=== PATIENT | female | born 1990 | race Caucasian/White ===

== ENCOUNTER 2016-07-21 12:22 | Emergency (ER) | payer SELFPAY ==
[2016-07-21 13:02] VITALS: BP 137/80
--- NOTE | 2016-07-21 13:07 | UC ---
Minor Trauma HPI - HPI Summary HPI Summary: Low left back pain after fall on ice today. no new numbness or weakness but there is significant pain with any movement. no saddle anesthesia or incontinence. - History of Current Complaint Chief Complaint: UCBACK PAIN Stated Complaint: WC-FALL/BACK PAIN Time Seen by Provider: 07/21/16 12:53 Hx Obtained From: Patient Hx Last Menstrual Period: 07/15/16 ?: No Onset/Duration: Sudden Onset Onset Of Pain: Post Accident Severity Initially: Moderate Severity Currently: Moderate Pain Scale Used: 0-10 Numeric - 5/10 without movement. Mechanism Of Injury: Fall From Height Of: - standing. Aggravating Factor(s): Movement Associated Signs And Symptoms: Negative: Loss Of Consciousness, Ecchymosis, Swelling - Risk Factors Penetrating Injury Risk Factors: Negative - Allergies/Home Medications Allergies/Adverse Reactions: Allergies Allergy/AdvReac Type Severity Reaction Status Date / Time Tobramycin AdvReac Intermediate Pain Verified 07/21/16 12:50 PMH/Surg Hx/FS Hx/Imm Hx Endocrine History Of: Denies: Diabetes, Thyroid Disease Cardiovascular History Of: Denies: Cardiac Disorders, Hypertension, Pacemaker/ICD Respiratory History Of: Reports: Asthma Denies: COPD GI/ History Of: Reports: Ulcer - borderline ulcer in past Denies: Renal Disease - Surgical History Surgery Procedure, Year, and Place: T&A, Adnoidectomy - Family History Known Family History: Negative: Hypertension, Diabetes Family History: no recent family illness, no cardio-vascular disease history - Social History Alcohol Use: None Alcohol Amount: none in 3 months Substance Use Type: None Substance Use Comment - Amount & Last Used: quit 6 months ago marijuana Smoking Status (MU): Light Every Day Tobacco Smoker Type: Cigarettes Amount Used/How Often: 5 CIGS PER DAY Length of Time of Smoking/Using Tobacco: On and Off for 8 Years Have You Smoked in the Last Year: Yes Household Exposure Type: Cigarettes - Immunization History Most Recent Influenza Vaccination: Not the 2016/2016 Season Most Recent Tetanus Shot: Summer 2015 Most Recent Pneumonia Vaccination: none Review of Systems All Other Systems Reviewed And Are Negative: Yes Physical Exam Triage Information Reviewed: Yes Appearance: Well-Nourished, Pain Distress - grimace with palpation otherwise well and no obvious pain. Vital Signs: Initial Vital Signs Temp 99.6 F 07/21/16 12:51 Pulse 109 07/21/16 12:51 Resp 20 07/21/16 12:51 BP 137/80 07/21/16 12:51 Pulse Ox 100 07/21/16 12:51 Vital Signs Reviewed: Yes Eye Exam: Normal Eyes: Positive: Conjunctiva Clear. Negative: Conjunctiva Inflamed ENT: Positive: Normal ENT inspection, Pharynx normal. Negative: Nasal drainage , TMs normal, TM bulging, TM dull, TM red, Tonsillar swelling, Tonsillar exudate , Trismus, Muffled/hoarse voice Neck exam: Normal Neck: Positive: Supple, Nontender. Negative: No Lymphadenopathy, Nuchal Rigidity, Tenderness @, Enlarged Nodes @ Respiratory Exam: Normal Respiratory: Positive: Normal breath sounds, No respiratory distress, No accessory muscle use. Negative: Respiratory distress Cardiovascular Exam: Normal Cardiovascular: Positive: RRR, No Murmur, Pulses Normal Abdomen Description: Positive: Nontender, No Organomegaly Musculoskeletal Exam: Normal Musculoskeletal: Positive: Strength Intact, No Edema, ROM Limited @ - there is diffuse tenderness of the right mid to lower flank areas. There is diffuse midline tenderness as well. no bruising or deformity or anders offs. REflexes maximino 2+ patella and achilles. Maximino straight leg raise causes pain. Neurological Exam: Normal Neurological: Positive: Alert, Muscle Tone Normal. Negative: Fatigued Psychological Exam: Normal Skin Exam: Normal Skin: Negative: rashes Minor Trauma Course/Dx - Course Course Of Treatment: No neurlologic symptoms or deficits. no fx. symptomatic treatment. return for worsening. to ed immediately for any new neurologic symptoms. - Differential Dx/Diagnosis Differential Diagnosis/HQI/PQRI: Abrasion(s), Contusion(s), Fracture, Hematoma(s ), Laceration(s), Sprain, Strain Provider Diagnoses: traumatic low back pain. Discharge - Discharge Plan Condition: Stable Disposition: HOME Prescriptions: Cyclobenzaprine TAB* [Flexeril 10 MG TAB*] 10 mg PO BID PRN #10 tab PRN Reason: Pain Patient Education Materials: Acute Low Back Pain (ED) Forms: *Work Release
--- NOTE | 2016-07-21 13:33 | RAD ---
HISTORY: Low back pain after fall COMPARISONS: None VIEWS: 3 , Frontal, lateral, and coned-down lateral sacral views of the lumbar spine FINDINGS: ALIGNMENT: The alignment is normal. VERTEBRAL BODIES: The vertebral body heights are normal. The interpedicular distances are normal. JOINTS: The facet joints are normal. INTERVERTEBRAL DISCS: There is mild diffuse loss of intervertebral disc height. SOFT TISSUE: Unremarkable. OTHER: The pelvis is unremarkable. The lung bases are clear. IMPRESSION: MILD DEGENERATIVE CHANGES. NO ACUTE OSSEOUS INJURY. IF SYMPTOMS PERSIST, RECOMMEND REPEAT IMAGING
== END 2016-07-21 13:53 | disposition home or self-care (01) ==
LOC: UCCORT 12:22
DX: M54.5 Low back pain (principal); Z32.02 Encounter for pregnancy test, result negative; Z88.1 Allergy status to other antibiotic agents; F17.210 Nicotine dependence, cigarettes, uncomplicated
CPT/HCPCS: 72100; 81003; 84702; 87086; 99212; G0463

== ENCOUNTER 2016-08-03 13:48 | Emergency (ER) | payer SELFPAY ==
[2016-08-03 15:24] VITALS: BP 122/77
--- NOTE | 2016-08-03 16:24 | UC ---
Bite Injury/Animal HPI - HPI Summary HPI Summary: complaint of jd bite on left hand that started yesterday at 10AM since then hand has become swollen red painful pain is radiating up her arm cat has been vaccinated - works at [employer] not taking any medication for pain denies fever and chills - History of Current Complaint Chief Complaint: UCBiteInjury Stated Complaint: CAT BITE Time Seen by Provider: 08/03/16 16:18 Hx Obtained From: Patient Hx Last Menstrual Period: 07/15/16 - Allergies/Home Medications Allergies/Adverse Reactions: Allergies Allergy/AdvReac Type Severity Reaction Status Date / Time Tobramycin AdvReac Intermediate Pain Verified 08/03/16 15:24 PMH/Surg Hx/FS Hx/Imm Hx Previously Healthy: Yes Endocrine History Of: Denies: Diabetes, Thyroid Disease Cardiovascular History Of: Denies: Cardiac Disorders, Hypertension, Pacemaker/ICD Respiratory History Of: Reports: Asthma Denies: COPD GI/ History Of: Reports: Ulcer - borderline ulcer in past Denies: Renal Disease - Surgical History Surgical History: Yes Surgery Procedure, Year, and Place: T&A, Adnoidectomy - Family History Known Family History: Negative: Hypertension, Diabetes Family History: no recent family illness, no cardio-vascular disease history - Social History Occupation: Employed Full-time Lives: With Family Alcohol Use: None Alcohol Amount: none in 3 months Substance Use Type: None Substance Use Comment - Amount & Last Used: quit 6 months ago marijuana Smoking Status (MU): Light Every Day Tobacco Smoker Type: Cigarettes Amount Used/How Often: 5 CIGS PER DAY Length of Time of Smoking/Using Tobacco: On and Off for 8 Years Have You Smoked in the Last Year: Yes Household Exposure Type: Cigarettes Cessation Counseling: Patient Advised to Stop - Immunization History Most Recent Influenza Vaccination: Not the 2016/2016 Season Most Recent Tetanus Shot: Summer 2015 Most Recent Pneumonia Vaccination: none Review of Systems Constitutional: Negative Skin: Other - cat bite Eyes: Negative ENT: Negative Respiratory: Negative Cardiovascular: Negative Gastrointestinal: Negative Genitourinary: Negative Motor: Negative Neurovascular: Negative Musculoskeletal: Negative Neurological: Negative Psychological: Negative All Other Systems Reviewed And Are Negative: Yes Physical Exam Triage Information Reviewed: Yes Appearance: No Pain Distress, Well-Nourished Vital Signs: Initial Vital Signs Temp 98.7 F 08/03/16 15:19 Pulse 102 08/03/16 15:19 Resp 18 08/03/16 15:19 BP 122/77 08/03/16 15:19 Pulse Ox 100 08/03/16 15:19 Vital Signs Reviewed: Yes Eyes: Positive: Conjunctiva Clear ENT: Positive: Pharynx normal, TMs normal Neck: Positive: No Lymphadenopathy Respiratory: Positive: Lungs clear, Normal breath sounds, No respiratory distress Cardiovascular: Positive: RRR, No Murmur, Pulses Normal Abdomen Description: Positive: Nontender, Soft Bowel Sounds: Positive: Present Musculoskeletal Exam: Normal Neurological Exam: Normal Psychological Exam: Normal Skin: Positive: Other - left hand - puncture wounds over 3rd and4th MCP joints, diffuse erythema throughout hand up to wrist,3x4cm area of darher erythema over pasterior side of hand, able to move fingers but painful Bite Injury Course/Dx - Course Course Of Treatment: exam completed. pt afebrile, will treat with augmentin with followup with orthopedics due to puncture wounds over joints in hand. discussed when to seek emergent care with pt who states understanding - Differential Dx/Diagnosis Differential Diagnosis/HQI/PQRI: Cellulitis, Puncture Provider Diagnoses: left hand cellulitis secondary to cat bite Discharge - Discharge Plan Condition: Stable Disposition: HOME Prescriptions: Amoxicillin/Clavulanate TAB* [Augmentin TAB 875*] 875 mg PO BID #20 tab Ibuprofen TAB* [Motrin TAB* 800 MG] 800 mg PO Q8H #30 tab Patient Education Materials: Animal Bite (ED) Forms: *Work Release Referrals: Bindu Jesus NP [Primary Care Provider] - Alexandra Reveles MD [Medical Doctor] - Additional Instructions: Your blood pressure is pre-hypertensive reading. Please contact your primary care provider within 1 day -4 weeks for further evaluation please call orthopedics for further evaluation and treatment. CELLULITIS What is Cellulitis? Cellulitis is a bacterial infection of the skin and, sometimes, of the tissues beneath the skin. The skin normally has many types of bacteria on it, but intact skin is an effective barrier that keeps bacteria from entering and growing within the body. When there is a break in the skin, bacteria can enter the body and grow there, causing infection. The infection usually affects outer layers of the skin first, and then spreads deeper into body tissues. Cellulitis can affect any area of the body covered by skin, but it is most common on the face or lower part of the legs. Symptoms Might Include: Skin redness that increases in size as the infection spreads Tight, glossy, "stretched" appearance of the skin Pain or tenderness of the area The affected area may be warm or hot to the touch A thin red line (along a vein) from the cellulitis toward the heart Fever Chills, shaking Muscle aches pains Joint stiffness because of swelling around a joint Treatment Recommendations: The healthcare provider may have prescribed an antibiotic medicine. The medicine should be taken until it is completely gone, even if you are feeling better. If you stop taking the medicine early, the infection may not be completely gone, and the medication may not work the next time. If the infection is on your arm or leg, keep it elevated. You may use warm, wet compresses to relieve the pain and help healing. Soak a clean cloth in warm water, wring it a little, and apply it to the affected site. Leave the soak in place for 15 minutes and repeat often throughout the day. Rest until the fever is gone and the pain and redness have lessened. You may take ibuprofen (Motrin, Advil), or acetaminophen (Tylenol) for pain. These will help ease some of the symptoms but will not cure the infection. Call Your Doctor or Return Here IF: Your fever does not go down with treatment, or it increases to more than 101 F. You are not starting to get better with the treatment within 24 to 36 hours. You have increasing pain, swelling, or chills. You feel drowsy and lethargic, or you have vomiting or diarrhea. You find the redness is spreading or there are red streaks coming from the infected area. The joint or bone under the infected skin becomes painful after the skin has started to heal. You have any new symptoms that worry you.
[2016-08-03] MEDS ORDERED: Amoxicillin/Clavulanate TAB* 875 MG PO ONE (16:29)
[2016-08-03] MEDS ORDERED: Ibuprofen TAB* 400 MG PO ONE (16:30)
== END 2016-08-03 17:00 | disposition home or self-care (01) ==
LOC: UCEAST 13:48
DX: S60.572A Other superficial bite of hand of left hand, initial encounter (principal); L03.114 Cellulitis of left upper limb; W55.01XA Bitten by cat, initial encounter; Y93.9 Activity, unspecified; Y99.9 Unspecified external cause status; R03.0 Elevated blood-pressure reading, without diagnosis of hypertension
CPT/HCPCS: 99212; A9270-GY; G0463

== ENCOUNTER 2016-08-06 12:41 | Emergency (ER) | payer SELFPAY ==
[2016-08-06] MEDS ORDERED: Ondansetron ODT TAB* 4 MG PO ONE (13:13)
--- NOTE | 2016-08-06 13:31 | ED ---
Stuart Carter Billy, scribed for Jorge Luis Zuleta MD on 08/06/16 at 1306 . Bite Injury/Animal - HPI Summary HPI Summary: Patient is a 26 year-old female coming to [facility] after being bitten by a cat on the left hand. She was evaluated at [facility] [place] and was prescribed Augmentin. She says the ROM has improved since then. However, the pain is not improving as she would like, and she also complains of N/V/D. - History of Current Complaint Chief Complaint: EDAnimalBite Stated Complaint: CAT BITE Time Seen by Provider: 08/06/16 13:01 Hx Obtained From: Patient Hx Last Menstrual Period: 07/15/16 Onset of Injury: Happened days ago Type of Bite: Animal Severity Initially: Moderate Severity Currently: Moderate Pain Intensity: 9 Pain Scale Used: 0-10 Numeric Aggravating Factor(s): Nothing Alleviating Factor(s): Nothing Associated Signs And Symptoms: Positive: Erythema, Swelling, Limited ROM. Negative: Fever - Allergies/Home Medications Allergies/Adverse Reactions: Allergies Allergy/AdvReac Type Severity Reaction Status Date / Time Tobramycin AdvReac Intermediate Pain Verified 08/03/16 15:24 PMH/Surg Hx/FS Hx/Imm Hx Endocrine/Hematology History: Denies: Hx Diabetes, Hx Thyroid Disease Cardiovascular History: Denies: Hx Hypertension, Hx Pacemaker/ICD Respiratory History: Reports: Hx Asthma Denies: Hx Chronic Obstructive Pulmonary Disease (COPD) GI History: Reports: Hx Ulcer - borderline ulcer in past History: Denies: Hx Renal Disease Sensory History: Denies: Hx Hearing Aid Psychiatric History: Denies: Hx Panic Disorder - Surgical History Surgery Procedure, Year, and Place: T&A, Adnoidectomy Infectious Disease History: Reports: Hx of Known/Suspected MRSA Denies: Hx Clostridium Difficile, Hx Hepatitis, Hx Human Immunodeficiency Virus (HIV), Hx Shingles, Hx Tuberculosis, Hx Known/Suspected VRE, Hx Known/ Suspected VRSA, History Other Infectious Disease, Traveled Outside the [place] in Last 30 Days - Family History Known Family History: Negative: Hypertension, Diabetes Family History: no recent family illness, no cardio-vascular disease history - Social History Alcohol Use: None Alcohol Amount: none in 3 months Substance Use Type: Reports: None Substance Use Comment - Amount & Last Used: quit 6 months ago marijuana Smoking Status (MU): Light Every Day Tobacco Smoker Type: Cigarettes Amount Used/How Often: 5 CIGS PER DAY Length of Time of Smoking/Using Tobacco: On and Off for 8 Years Have You Smoked in the Last Year: Yes Review of Systems Negative: Fever, Chills Positive: Edema, Other - left hand pain All Other Systems Reviewed And Are Negative: Yes Physical Exam - Summary Physical Exam Summary: VITAL SIGNS: Reviewed. GENERAL: Patient is a well developed and nourished female who is lying comfortable in the stretcher. Patient is not in any acute respiratory distress. HEAD AND FACE: Normocephalic EYES: PERRLA, EOMI x 2. EARS: Hearing grossly intact. MOUTH: Oropharynx within normal limits. NECK: Supple, trachea is midline, no adenopathy, no JVD, no carotid bruit. CHEST: Symmetric, no tenderness at palpation LUNGS: Clear to auscultation bilaterally. No wheezing or crackles. CVS: Regular rate and rhythm, S1 and S2 present, no murmurs or gallops appreciated. ABDOMEN: Soft, non-tender. Bowel sounds are normal. No abdominal abnormal pulsations. EXTREMITIES: Full ROM in all major joints, no cyanosis or clubbing. There is swelling to the left 4th metacarpal at the dorsal aspect of the hand. She is able to move her fingers, although there is discomfort with movement of the 4th digit. However, the patient reports that there has been significant improvement in ROM in the last 3 days. She is neurovascularly intact. NEURO: Alert and oriented x 3. No acute neurological deficits. Speech is normal and follows commands. SKIN: Dry and warm. Triage Information Reviewed: Yes Vital Signs On Initial Exam: Initial Vitals Temp Pulse Resp BP Pulse Ox 98.6 F 88 18 129/73 100 08/06/16 12:47 08/06/16 12:47 08/06/16 12:47 08/06/16 12:47 08/06/16 12:47 Vital Signs Reviewed: Yes Diagnostics - Vital Signs Vital Signs Temp Pulse Resp BP Pulse Ox 08/06/16 12:47 98.6 F 88 18 129/73 100 - Laboratory Lab Statement: Any lab studies that have been ordered have been reviewed, and results considered in the medical decision making process. Bite Injury Course/Dx - Course Assessment/Plan: Patient is a 26 year-old female coming to [facility] after being bitten by a cat on the left hand. She was evaluated at [facility] [place] and was prescribed Augmentin. She says the pain, swelling, erythema, and ROM have improved since then. However, the pain is not improving as much as she would like, and she also complains of N/V/D. Last steve she had a watery diarrhea it was yesterday. Psotive nausea w/o vomiting. The patient has cellulitis in the dorsal aspect of the left hand around the fourth metacarpal area. Since the patients movement , erythema, pain, and swelling are improving, I have low suspicion for tendon synovitis. However, we will still ask the patient to follow up with hand surgeon , especially if the symptoms worsen. The patient will continue taking Augment as previously prescribed and she will be given Zofran for nausea, and she was asked to take OTC probiotics. She is also to increase her fluid intake to decrease the risk of dehydration. She understands and agrees. I discussed all the findings and test results with the patient. Patient was instructed to return to the emergency room immediately if any of the symptoms return or worsens. Plan of care was discussed with the patient and understands and agrees. All questions were answered at patient satisfaction. There were no further complaints or concerns. Lung exam before discharge: CTA B/L. Good air exchange. No wheezing or crackles heard. CVS: S1 and S2 present. No murmurs appreciated. Patient is alert and oriented x 3. Patient is hemodynamically stable. 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 PIERRE, ORTHOPEDICS, FOR EVALUATION OF YOUR HAND. CONSUME OVER -THE-COUNTER PROBIOTICS NEEDED FOR YOUR NAUSEA, VOMITING, AND DIARRHEA. TAKE MEDICATIONS PRESCRIBED. The documentation as recorded by the Stuart patino Billy accurately reflects the service I personally performed and the decisions made by me, Jorge Luis Zuleta MD.
[2016-08-06 13:52] VITALS: BP 125/74
== END 2016-08-06 13:51 | disposition home or self-care (01) ==
LOC: ED 12:41
DX: R60.0 Localized edema (principal); F17.210 Nicotine dependence, cigarettes, uncomplicated; L03.90 Cellulitis, unspecified
CPT/HCPCS: 99282

== ENCOUNTER 2016-08-11 13:26 | Inpatient (IN) | payer BC, OTHER ==
[2016-08-11 14:29] LABS: UR Preg Internal Control QC Line Present
[2016-08-11] MEDS ORDERED: Dexamethasone IV* 4 MG/ML 1 ML (4 MG) IV SLOW PU ONE (15:44)
[2016-08-11] MEDS ORDERED: Buffered Lidocaine 1% SYRIN* 3 ML/SYR SYRINGE INTRADERM ONE (15:44)
[2016-08-11] MEDS ORDERED: Famotidine IV* 10 MG/ML 2 ML (20 mg) IV ONE (15:44)
[2016-08-11] MEDS ORDERED: Midazolam* 1 MG/ML 2 ML VIAL (2 MG) ONE (15:55)
[2016-08-11] MEDS ORDERED: Propofol* 10 MG/ML 20 ML BTL IV PUSH ONE (15:55)
[2016-08-11] MEDS ORDERED: fentaNYL* 50 MCG/ML 5 ML VIAL (250 MCG VIAL) ONE (15:55)
[2016-08-11] MEDS ORDERED: Ketorolac INJ* 30 MG/ML 1 ML VIAL ONE (15:55)
[2016-08-11] MEDS ORDERED: Ondansetron INJ* 2 MG/ML VIAL ONE (15:55)
[2016-08-11] MEDS ORDERED: Famotidine IV* 10 MG/ML 2 ML (20 mg) ONE (16:01)
[2016-08-11] MEDS ORDERED: Dexamethasone IV* 4 MG/ML 1 ML (4 MG) ONE (16:01)
[2016-08-11] MEDS ORDERED: Lidocaine 2% PF* 5 ML VIAL ONE (16:15)
[2016-08-11] MEDS ORDERED: EPHEDrine (Pressors)* 50 MG/ML VIAL ONE ×2 (16:25→16:28)
[2016-08-11] MEDS ORDERED: Bupivacaine 0.5% SDV PF* 30 ML VIAL ONE (16:27)
[2016-08-11] MEDS ORDERED: Glycopyrrolate IV* 0.2 MG/ML 1 ML VIAL ONE (16:28)
[2016-08-11] MEDS ORDERED: DiMENhydriNATE IV* 50 MG/ML VIAL IV PUSH PRN (16:40)
[2016-08-11] MEDS ORDERED: Ondansetron INJ* 2 MG/ML VIAL IV PRN (16:40)
[2016-08-11] MEDS ORDERED: oxyCODONE/Acetamin 5/325 MG* TAB PO PRN (16:40)
[2016-08-11] MEDS ORDERED: fentaNYL* 50 MCG/ML 2 ML VIAL (100 MCG VIAL) IV PRN (16:40)
[2016-08-11] MEDS ORDERED: Acetaminophen TAB* 325 MG PO PRN (16:59)
[2016-08-11] MEDS ORDERED: diPHENhydraMINE IV* 50 MG/ML 1 ml VIAL (BENADRYL) IV PRN (16:59)
[2016-08-11] MEDS ORDERED: Ondansetron TAB* 4 MG PO PRN (16:59)
[2016-08-11] MEDS ORDERED: Morphine INJ* 2 MG/ML 1 ML SYRINGE IV PRN (16:59)
[2016-08-11] MEDS ORDERED: Piperac/Tazob 3.375 gm in NS* 3.375 GM/100 ML BAG IVPB ONE (17:00)
[2016-08-11] MEDS: Ibuprofen TAB* 800 MG PO SCH (21:08)
[2016-08-11] MEDS ORDERED: D5W 1/2 NS 1000 ML BAG* 1,000 ML IV SCH (22:00)
[2016-08-11] MEDS: Piperac/Tazob 3.375 gm in NS* 3.375 GM/100 ML BAG IVPB SCH (22:43)
[2016-08-12] MEDS: Ibuprofen TAB* 800 MG PO SCH ×4 (02:25→22:41)
[2016-08-12] MEDS: oxyCODONE/Acetamin 5/325 MG* TAB PO PRN ×4 (05:16→23:46)
[2016-08-12] MEDS: Piperac/Tazob 3.375 gm in NS* 3.375 GM/100 ML BAG IVPB SCH ×3 (06:28→22:42)
--- NOTE | 2016-08-12 10:01 | PN ---
Progress Note - Progress Note SOAP: Subjective: []Patient seen at bedside. Doing well. Hand pain is tolerable with Percocet. Objective: [] Vital Signs Temp 97.9 F 08/12/16 08:02 Pulse 58 08/12/16 08:02 Resp 16 08/12/16 08:02 BP 94/51 08/12/16 08:02 Pulse Ox 100 08/12/16 08:02 Intake & Output 08/11/16 08/12/16 08/12/16 18:59 06:59 18:59 Intake Total 900 2050 Output Total 1000 Balance 900 1050 Weight 108 lb 12.8 oz Intake: IV Fluids 900 LR 900 Oral 2050 Output: Urine 1000 Other: Estimated Void Medium # Voids 2 Laboratory Results - last 24 hr 08/11/16 14:09 Urine Test Negative Left hand wrapped in bulky splint, clean and dry fingers all pink and warm, able to wiggle all digits full sensation throughout all digits Assessment: []s/p I&D left ring MCP joint/ finger, s/p infection secondary to cat bite POD # 1 Plan: []Currently on Zosyn Percocet for pain Await recommendations from Dr. Lyon, then discharge home
[2016-08-12 12:20] LABS: Hematocrit 38 % (35-47); Hemoglobin 12.6 g/dl (12.0-16.0); Mean Corpuscular HGB Conc 33 g/dl (31-36); Mean Corpuscular Hemoglobin 29 pg (27-31); Mean Corpuscular Volume 88 fL (80-97); Mean Platelet Volume 8 um3 (7.4-10.4); Red Blood Count 4.38 10^6/ul (4.0-5.4); Red Cell Distribution Width 13 % (10.5-15); White Blood Count 13.9 10^3/ul (3.5-10.8)
--- NOTE | 2016-08-12 15:05 | OP ---
DATE OF OPERATION: 08/11/16 - ROOM #332 DATE OF : 89 SURGEON: Eduar Boucher MD ACTUARIAL ASSISTANT: Yoli Whatley PA-C PRE-OP DIAGNOSIS: Infected cat bite, left fourth metacarpophalangeal joint. POST-OP DIAGNOSIS: Infected cat bite, left fourth metacarpophalangeal joint. OPERATIVE PROCEDURE: Irrigation and debridement, left hand. DESCRIPTION OF PROCEDURE: The patient was taken to the operating room where general anesthesia was administered. We made a lazy S incision over the left fourth MCP dorsum. We carried directly down to the extensor mann, which was split longitudinally over the MCP joint. The joint was opened, capsule appeared to be intact. There was some cloudy fluid obtained from the joint itself, maybe 1 cc or 2. We thoroughly irrigated this with a liter of saline. There was no defect in the cartilage noted. We repaired the dorsal extensor tendon with interrupted 5-0 Prolene sutures and then the skin with 4-0 nylon interrupted sutures and a compression dressing, plaster splint was applied. Deep cultures were sent. [id number]/[facility] #: [id number] [facility]
--- NOTE | 2016-08-12 21:48 | CONS ---
CONSULTATION REPORT: DATE OF CONSULT: 08/12/16 REQUESTING PHYSICIAN: Dr. Boucher. CONSULTING SERVICE: Infectious Disease. REASON FOR CONSULTATION: 1. Left hand cat bite 10 days ago with an infected left fourth metacarpophalangeal joint, which was washed out. Cultures negative, but was on Augmentin at that time. The usual juliette of a cat's mouth including pasteurella, strep, various anaerobes and on the skin juliette including staph and strep. 2. ALLERGY TO TOBRAMYCIN. RECOMMENDATION: Continue Zosyn. We will wait for the final culture result; and then, given the joint space involvement, we will plan on approximately 2 weeks of IV antibiotics assuming that she is continuing to improve, likely continue ceftriaxone and an oral agent to cover anaerobes. 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 She was seen in [facility], given Augmentin. She had some swelling and redness that improved, a couple of puncture wounds over the fourth MCP joint. The redness and swelling went away, but pain increased and she could not extend that fourth finger. She was seen again in the ER, referred to Dr. Saldaña, and then yesterday, Dr. Boucher did incision and debridement, opened up the joint capsule there was cloudy fluid, which was irrigated. She has had no fevers, chills, or sweats and tolerating antibiotics well. PAST MEDICAL HISTORY: None. MEDICATIONS: 1. Tylenol. 2. Ibuprofen. 3. Zofran. 4. Zosyn 3.375 g every 8 hours by extended infusion. 5. Percocet. ALLERGIES: TOBRAMYCIN TOPICAL. FAMILY HISTORY: No recurrent infections. 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 No sick contacts. REVIEW OF SYSTEMS: All negative except as noted above. PHYSICAL EXAM: Vital Signs: Temperature 36, heart rate 70, respiratory rate 17 , blood pressure 100/41, O2 sat 100% on room air. General: She is awake, in no distress. Neurologic: Oriented x3. Follows all commands. Moves all of her extremities. HEENT: There is no conjunctival hemorrhage. Oropharynx without lesions. Neck: Supple without nuchal rigidity. Lymph Nodes: There is no cervical, supraclavicular, inguinal, axillary, or epitrochlear lymphadenopathy. Heat: Regular rate and rhythm without murmurs, rubs, or gallops. Lungs: Clear to auscultation bilaterally. Abdomen: Soft, nontender , and nondistended without hepatosplenomegaly. Skin: There is no rash or splinter hemorrhages. Musculoskeletal: There is no spine tenderness to palpation. Left hand is casted and wrapped. DIAGNOSTIC STUDIES/LAB DATA: White blood cell count 13, hemoglobin 12, platelets 317. CRP was 0.2. Urinalysis negative. Please see impressions and recommendations as outlined above. Thanks for asking me to see Estiven Zuleika in consultation. [id number]/[facility] #: [id number] [facility]
[2016-08-13] MEDS: Ibuprofen TAB* 800 MG PO SCH ×3 (05:30→21:10)
[2016-08-13] MEDS: oxyCODONE/Acetamin 5/325 MG* TAB PO PRN ×4 (06:32→21:09)
[2016-08-13] MEDS: Piperac/Tazob 3.375 gm in NS* 3.375 GM/100 ML BAG IVPB SCH ×3 (06:33→22:54)
[2016-08-13 06:56] LABS: Albumin 3.5 g/dL (3.2-5.2); BUN/Creatinine Ratio 12.8 (8-20); Calcium 8.5 mg/dL (8.6-10.3); EGFR African American 116.7 (>60); EGFR Non-African American 90.7 (>60); Globulin 2.1 g/dL (2-4); Potassium 4.6 mmol/L (3.5-5.0); Total Bilirubin 0.2 mg/dL (0.2-1.0); Total Protein 5.6 g/dL (6.4-8.9)
--- NOTE | 2016-08-13 09:27 | PN ---
Progress Note - Progress Note SOAP: Subjective: []patient seen at bedside. Pain well managed with Percocet. She was evaluated yesterday by Dr. Lyon who recommends 2 weeks of IV ABX treatment. Objective: [] Vital Signs Temp 98.1 F 08/13/16 07:28 Pulse 82 08/13/16 07:28 Resp 17 08/13/16 07:28 BP 100/61 08/13/16 07:28 Pulse Ox 100 08/13/16 07:28 Intake & Output 08/12/16 08/13/16 08/13/16 18:59 06:59 18:59 Intake Total 2447 614 Output Total 2125 800 700 Balance 322 -186 -700 Intake: IV Fluids 1057 129 D5 1/2 NS 1057 NS 20 Zosyn 109 IVPB 110 105 Zosyn 110 105 Oral 1280 380 Output: Urine 2125 800 700 Laboratory Results - last 24 hr 08/12/16 08/12/16 08/13/16 12:02 12:02 06:11 WBC 13.9 H RBC 4.38 Hgb 12.6 Hct 38 MCV 88 MCH 29 MCHC 33 RDW 13 Plt Count 317 MPV 8 Neut % (Auto) 77.0 Lymph % (Auto) 12.7 L Stanley % (Auto) 9.8 H Eos % (Auto) 0.2 Baso % (Auto) 0.3 Absolute Neuts (auto) 10.7 H Absolute Lymphs (auto) 1.8 Absolute Monos (auto) 1.4 H Absolute Eos (auto) 0 Absolute Basos (auto) 0 Absolute Nucleated RBC 0.01 Nucleated RBC % 0 Sodium 134 Potassium 4.6 Chloride 106 Carbon Dioxide 24 Anion Gap 4 BUN 10 Creatinine 0.78 Est GFR ( Amer) 116.7 Est GFR (Non-Af Amer) 90.7 BUN/Creatinine Ratio 12.8 Glucose 95 Calcium 8.5 L Total Bilirubin 0.20 AST 10 L ALT 6 L Alkaline Phosphatase 49 C-React Prot High Sens 0.26 Total Protein 5.6 L Albumin 3.5 Globulin 2.1 Albumin/Globulin Ratio 1.7 Microbiology 08/11/16 16:30 Anaerobic Culture - Preliminary Wound - Finger No Growth Day 1 08/11/16 16:30 Gram Stain - Final Finger - Ring Left Wound Culture - Preliminary No Growth Day 1 08/12/16 06:30 Nasal Screen MRSA (PCR)(KENISHA) - Final Nasal Mrsa Negative Left hand wrapped in bulky dressing fingers pink and warm, sensation intact no edema Assessment: []s/p I&D left 4th MCP joint for infection s/p cat bite POD #2 Plan: []Continue Zosyn until cultures final, negative to date, then IV abx recommendations for home as per Dr. Lyon Await insurance coverage info: home IV abx vs daily infusion center
[2016-08-14] MEDS: oxyCODONE/Acetamin 5/325 MG* TAB PO PRN ×5 (03:34→21:28)
[2016-08-14] MEDS: Ibuprofen TAB* 800 MG PO SCH ×3 (05:09→21:28)
[2016-08-14] MEDS: Piperac/Tazob 3.375 gm in NS* 3.375 GM/100 ML BAG IVPB SCH ×3 (06:29→22:32)
[2016-08-14] MEDS: Magnesium Hydroxide LIQ* 30 ML UDC PO PRN (10:48)
--- NOTE | 2016-08-14 11:42 | PN ---
Progress Note - Progress Note Note: Kelsie was seen and examined yesterday at noon. Her pain is improved. The splint was taken down. The wound is clean and dry. No erythema. Less pain with active MP joint extension. Cultures are negative. A/P: Improving s/p I&D of metacarpophalangeal joint 2 days ago. Plan is to continue antibiotics per Dr. Ross. I replaced her short arm splint. We'll splint this for another week and get her moving. She may be discharged from the hospital when her home antibiotics are set up. Follow up will be with me. I am out of town next week so she may follow up with one of my partners, possibly Dr. Reveles, while I am away.
--- NOTE | 2016-08-14 14:19 | RAD ---
Indication: Verify PICC line placement. Single frontal view of the chest performed at 1355 hours was reviewed. Comparison is made with previous exam dated April 03, 2006. No mediastinal shift is noted. Heart is of normal size and configuration. Lung santos appear clear. PICC line appears to be in the superior vena cava via the left upper extremity. IMPRESSION: NO ACTIVE CARDIOPULMONARY DISEASE IS NOTED. PICC LINE IS IN THE SUPERIOR VENA CAVA.
[2016-08-15] MEDS: Piperac/Tazob 3.375 gm in NS* 3.375 GM/100 ML BAG IVPB SCH (06:25)
[2016-08-15] MEDS: Ibuprofen TAB* 800 MG PO SCH ×2 (06:25→13:26)
[2016-08-15] MEDS: Magnesium Hydroxide LIQ* 30 ML UDC PO PRN (06:32)
[2016-08-15] MEDS: oxyCODONE/Acetamin 5/325 MG* TAB PO PRN (07:23)
--- NOTE | 2016-08-15 08:12 | PN ---
Progress Note - Progress Note SOAP: Subjective: [26 y/o female s/p cat bite to 4th MCP s/p I&D 08/11. Patient overall feeling well, eager for D/C. Understands instructions given by DR. Saldaña yesterday. Pain well controlled. VSS overnight. PICC in place ] Objective: [General- Well appearing, resting comfortably in chair. AO MSK- PICC in place L arm. Splint in place, no drainage noted, able to move L fingers, no erythema/ swelling noted. ] Assessment: [26 y/o female s/p cat bite to 4th MCP s/p I&D 08/11. ] Vital Signs Temp 98.3 F 08/15/16 07:43 Pulse 65 08/15/16 07:43 Resp 15 08/15/16 07:43 BP 104/61 08/15/16 07:43 Pulse Ox 100 08/15/16 07:43 Intake & Output 08/14/16 08/15/16 08/15/16 18:59 06:59 18:59 Intake Total 1475 1600 Output Total 900 1350 Balance 575 250 Intake: IV Fluids 125 NS 25 Zosyn 100 Oral 1350 1600 Output: Urine 900 1350 Plan: - Continue to wear wrist splint x 1 week - Follow up with ortho next week - ABX per ID- Ceftriaxone 2gm daily x 21 days - Percocet for pain control ] Active Medications Generic Name Dose Route Start Last Admin Trade Name Freq PRN Reason Stop Dose Admin Acetaminophen 650 mg 08/11/16 16:59 Tylenol Tab* PO Q6H PRN PAIN OR TEMPERATURE Diphenhydramine HCl 25 mg 08/11/16 16:59 Benadryl Iv* IV Q6H PRN PRURITIS Heparin Sodium (Porcine) 1 - 3 ml 08/14/16 18:00 08/15/16 06:25 Heparin Flush Picc/Ml/Cvc(*) FLUSH Not Given 0600,1800 [facility] Protocol Piperacillin Sod/Tazobactam Sod 3.375 gm in 100 mls @ 25 mls/hr 08/11/16 22: 45 08/15/16 06:25 Zosyn 3.375 Gm In Ns Premix* IVPB 25 mls/hr Q8H ISMA Administration Ibuprofen 800 mg 08/12/16 05:00 08/15/16 06:25 Motrin Tab* PO 800 mg 0500,1300,2100 ISMA Administration Magnesium Hydroxide 30 ml 08/14/16 09:35 08/15/16 06:32 Milk Of Magnesia Liq* PO 30 ml Q6H PRN Administration CONSTIPATION Morphine Sulfate 2 mg 08/11/16 16:59 Morphine Inj (Syringe)* IV Q2H PRN PAIN Ondansetron HCl 4 mg 08/11/16 16:59 Zofran Tab* PO Q6H PRN NAUSEA Oxycodone/Acetaminophen 1 tab 08/11/16 16:59 08/15/16 07:23 Percocet 5/325 Tab* PO 1 tab Q4H PRN Administration PAIN Oxycodone/Acetaminophen 2 tab 08/11/16 16:59 08/14/16 21:28 Percocet 5/325 Tab* PO 2 tab Q4H PRN Administration PAIN
[2016-08-15 13:13] VITALS: BP 111/66
== END 2016-08-15 15:05 | disposition home or self-care (01) | DRG 710 ==
LOC: OR 13:26 → SSU 17:00
PROVIDERS: ADMIT Orthopaedic Surgery Hand Surgery; ATTEND Orthopaedic Surgery Hand Surgery
PROC: 0JDK0ZZ Extraction of Left Hand Subcutaneous Tissue and Fascia, Open Approach (ICD-10-PCS; principal; 2016-08-11 15:00)
DX: B99.9 Unspecified infectious disease (principal); L08.9 Local infection of the skin and subcutaneous tissue, unspecified; S61.255A Open bite of left ring finger without damage to nail, initial encounter; W55.01XA Bitten by cat, initial encounter; Y92.9 Unspecified place or not applicable; Z88.1 Allergy status to other antibiotic agents
CPT/HCPCS: 36415; 71010; 80053; 81025; 85025; 86141; 87070; 87073; 87205; 87641; A9270-GY; J0696; J1100; J1885; J2250; J2405; J2543; J2704; J3010

== ENCOUNTER 2016-08-29 16:53 | Emergency (ER) | payer SELFPAY ==
[2016-08-29 20:49] LABS: Hematocrit 35 % (35-47); Hemoglobin 11.4 g/dl (12.0-16.0); Mean Corpuscular HGB Conc 32 g/dl (31-36); Mean Corpuscular Hemoglobin 29 pg (27-31); Mean Corpuscular Volume 88 fL (80-97); Mean Platelet Volume 7 um3 (7.4-10.4); Red Blood Count 3.99 10^6/ul (4.0-5.4); Red Cell Distribution Width 14 % (10.5-15); White Blood Count 7.6 10^3/ul (3.5-10.8)
[2016-08-29 21:05] LABS: Urine Bilirubin Negative (Negative); Urine Glucose Negative (Negative); Urine Nitrite Negative (Negative)
[2016-08-29 21:05] LABS: Albumin 3.9 g/dL (3.2-5.2); BUN/Creatinine Ratio 18.2 (8-20); Calcium 8.8 mg/dL (8.6-10.3); EGFR African American 174.6 (>60); EGFR Non-African American 135.8 (>60); Globulin 2.2 g/dL (2-4); Magnesium 1.8 mg/dL (1.9-2.7); Potassium 3.7 mmol/L (3.5-5.0); Total Bilirubin 0.3 mg/dL (0.2-1.0); Total Protein 6.1 g/dL (6.4-8.9)
[2016-08-29 21:32] LABS: TSH (Thyroid Stimulating Horm) 2.31 mcIU/mL (0.34-5.60)
[2016-08-29 21:47] VITALS: BP 101/44
--- NOTE | 2016-08-29 21:54 | ED ---
Rome Carter Rebecca, scribed for Venita Barclay MD on 08/29/16 at 2005 . Palpitations / Dysrhythmia - HPI Summary HPI Summary: Pt is a 26 y/o F who presents to ED c/o palpitations characterized as fast. She was referred to her home health RN who was concerned over tachycardia today, at approximately 120 bpm. Sx began suddenly at noon and were constant, previous to resolution. Reports sx feel alleviated by spontaneous resolution, aggravated by nothing. Denies any CP including pain upon inspiration and fever. Denies any chance of . Confirms her BP tends to be low. 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 On August 11, pt reported it was washed out and was prescribed 2 weeks of Abx. Was evaluated by Dr. Ross (infectious disease) who advised another week of Abx, then 2 more proceeding weeks. Total, she will have received 5 weeks of Abx at the end of all treatments. No PMHx DVT, DM, HTN. PCP is Dr. Jesus. Allergy to Tobramycin. - History of Current Complaint Chief Complaint: EDDysrhythmPalp Time Seen by Provider: 08/29/16 19:54 Hx Obtained From: Patient Onset/Duration: Sudden Onset - 1200, Resolved Timing: Constant Severity Initially: Mild Severity Currently: None Character: Fast - 120 bpm per home RN Aggravating: Nothing Alleviating: Nothing - Spontaneous reoslution Associated Signs & Symptoms: Negative - Allergy/Home Medications Allergies/Adverse Reactions: Allergies Allergy/AdvReac Type Severity Reaction Status Date / Time Tobramycin AdvReac Intermediate Pain Verified 08/11/16 14:24 PMH/Surg Hx/FS Hx/Imm Hx Endocrine/Hematology History: Denies: Hx Diabetes, Hx Thyroid Disease Cardiovascular History: Denies: Hx Deep Vein Thrombosis, Hx Hypertension, Hx Pacemaker/ICD Respiratory History: Reports: Hx Asthma Denies: Hx Chronic Obstructive Pulmonary Disease (COPD) GI History: Reports: Hx Ulcer - borderline ulcer in past History: Denies: Hx Renal Disease Sensory History: Denies: Hx Hearing Aid Psychiatric History: Denies: Hx Panic Disorder - Surgical History Surgery Procedure, Year, and Place: T&A, Adnoidectomy Infectious Disease History: No Infectious Disease History: Reports: Hx of Known/Suspected MRSA Denies: Hx Clostridium Difficile, Hx Hepatitis, Hx Human Immunodeficiency Virus (HIV), Hx Shingles, Hx Tuberculosis, Hx Known/Suspected VRE, Hx Known/ Suspected VRSA, History Other Infectious Disease, Traveled Outside the [place] in Last 30 Days - Family History Known Family History: Negative: Cardiac Disease, Hypertension, Diabetes - Social History Lives: With Family - Grandmother Alcohol Use: None Alcohol Amount: none in 3 months Substance Use Type: Reports: None Substance Use Comment - Amount & Last Used: quit 6 months ago marijuana Smoking Status (MU): Light Every Day Tobacco Smoker Type: Cigarettes Amount Used/How Often: 1 PACK A WEEK Length of Time of Smoking/Using Tobacco: 5 YEARS Have You Smoked in the Last Year: Yes Review of Systems Negative: Fever Positive: Palpitations - fast - resolved. Negative: Chest Pain All Other Systems Reviewed And Are Negative: Yes Physical Exam - Summary Physical Exam Summary: General: Well appearing, no pain distress Skin: Warm, Skin Color Reflects Adequate Perfusion, Dry Eyes: EOMI, LOGAN ENT: Pharynx normal, TMs normal Neck: Supple, nontender Respiratory: CTA, breath sounds present, no rhonchi, no wheezes, no rales Cardiovascular: RRR, no murmur, no rub, no gallop Musculoskeletal: ERIN, No edema Neuro: Sensory/motor intact, A&Ox3, CN intact 2-12 Psych: Affect/mood appropriate Triage Information Reviewed: Yes Vital Signs On Initial Exam: Initial Vitals Temp Pulse Resp BP Pulse Ox 98.2 F 98 18 108/67 100 08/29/16 17:01 08/29/16 17:01 08/29/16 17:01 08/29/16 17:01 08/29/16 17:01 Vital Signs Reviewed: Yes Diagnostics - Vital Signs Vital Signs Temp Pulse Resp BP Pulse Ox 08/29/16 19:51 98.9 F 82 13 99/56 99 08/29/16 18:55 99.2 F 78 18 88/63 100 08/29/16 17:01 98.2 F 98 18 108/67 100 - Laboratory Lab Results: Lab Results 08/29/16 08/29/16 08/29/16 Range/Units 20:40 20:40 20:56 WBC 7.6 (3.5-10.8) 10^3/ul RBC 3.99 L (4.0-5.4) 10^6/ul Hgb 11.4 L (12.0-16.0) g/dl Hct 35 (35-47) % MCV 88 (80-97) fL MCH 29 (27-31) pg MCHC 32 (31-36) g/dl RDW 14 (10.5-15) % Plt Count 270 (150-450) 10^3/ul MPV 7 L (7.4-10.4) um3 Neut % (Auto) 57.4 (38-83) % Lymph % (Auto) 27.0 (25-47) % [place] % (Auto) 8.6 (1-9) % Eos % (Auto) 5.9 (0-6) % Baso % (Auto) 1.1 (0-2) % Absolute Neuts (auto) 4.3 (1.5-7.7) 10^3/ul Absolute Lymphs (auto) 2.0 (1.0-4.8) 10^3/ul Absolute Monos (auto) 0.6 (0-0.8) 10^3/ul Absolute Eos (auto) 0.4 (0-0.6) 10^3/ul Absolute Basos (auto) 0.1 (0-0.2) 10^3/ul Absolute Nucleated RBC 0.01 10^3/ul Nucleated RBC % 0.1 Sodium 138 (133-145) mmol/L Potassium 3.7 (3.5-5.0) mmol/L Chloride 107 (101-111) mmol/L Carbon Dioxide 26 (22-32) mmol/L Anion Gap 5 (2-11) mmol/L BUN 10 (6-24) mg/dL Creatinine 0.55 (0.51-0.95) mg/dL Est GFR ( Amer) 174.6 (>60) Est GFR (Non-Af Amer) 135.8 (>60) BUN/Creatinine Ratio 18.2 (8-20) Glucose 90 (70-100) mg/dL Calcium 8.8 (8.6-10.3) mg/dL Magnesium 1.8 L (1.9-2.7) mg/dL Total Bilirubin 0.30 (0.2-1.0) mg/dL AST 14 (13-39) U/L ALT 13 (7-52) U/L Alkaline Phosphatase 56 (34-104) U/L Total Protein 6.1 L (6.4-8.9) g/dL Albumin 3.9 (3.2-5.2) g/dL Globulin 2.2 (2-4) g/dL Albumin/Globulin Ratio 1.8 (1-3) TSH 2.31 (0.34-5.60) mcIU/mL Beta HCG, Quant 1.79 mIU/mL Urine Color Yellow Urine Appearance Cloudy Urine pH 5.0 (5-9) Ur Specific [place] 1.023 (1.010-1.030) Urine Protein Negative (Negative) Urine Ketones Negative (Negative) Urine Blood Negative (Negative) Urine Nitrate Negative (Negative) Urine Bilirubin Negative (Negative) Urine Urobilinogen Negative (Negative) Ur Leukocyte Esterase Negative (Negative) Urine Glucose Negative (Negative) Result Diagrams: 08/29/16 20:40 08/29/16 20:40 Lab Statement: Any lab studies that have been ordered have been reviewed, and results considered in the medical decision making process. - EKG 1719 Cardiac Rate: NL - 99 bpm EKG Rhythm: Sinus Rhythm - normal EKG Interpretation: 06/19/12 EKG Comparison: No Significant Change Course/Dx - Course Course Of Treatment: 26 yo female getting IV abx through a picc line for a septic joint. Here because her home nurse noted she was tachycardic, pt reports this often happens because she gets anxiety and her heart goes up easily, here labs and ekg normal fine to go home - Diagnoses Provider Diagnoses: Tachycardia Discharge - Discharge Plan Condition: Stable Disposition: HOME Patient Education Materials: Tachycardia (ED) Referrals: Bindu Jesus NP [Primary Care Provider] - 3 Days The documentation as recorded by the Rome patino Rebecca accurately reflects the service I personally performed and the decisions made by me, Venita Barclay MD.
== END 2016-08-29 21:58 | disposition home or self-care (01) ==
LOC: ED 16:53
DX: R00.0 Tachycardia, unspecified (principal); R00.2 Palpitations; F17.210 Nicotine dependence, cigarettes, uncomplicated
CPT/HCPCS: 36415; 80053; 81003; 83735; 84443; 84702; 85025; 93005; 99283

== ENCOUNTER 2016-10-26 12:04 | Emergency (ER) | payer BC ==
[2016-10-26 12:25] VITALS: BP 101/52
--- NOTE | 2016-10-26 13:22 | RAD ---
INDICATION: Left wrist injury. TECHNIQUE: 3 views of the left wrist were obtained. FINDINGS: There is soft tissue swelling present around the wrist. The bones are in normal alignment. No fracture is seen. Joint spaces appear maintained. IMPRESSION: SOFT TISSUE SWELLING, NO FRACTURE IS SEEN.
--- NOTE | 2016-10-26 14:31 | UC ---
Hand/Wrist HPI - HPI Summary HPI Summary: AT 11:30 AM GLASS AQUARIUM FELL ONTO LEFT WRIST AND HAND. NO LACERATION. PAIN AND MILD SWELLING IN LEFT WRIST & FOREARM. TENDER TO TOUCH. - History Of Current Complaint Chief Complaint: UCUpperExtremity Stated Complaint: ARM COMPLAINT Time Seen by Provider: 10/26/16 12:51 Hx Obtained From: Patient Hx Last Menstrual Period: 3 wks ago Onset/Duration: Sudden Onset, Lasting Hours, Still Present Severity Initially: Moderate Severity Currently: Moderate Pain Intensity: 9 Pain Scale Used: 0-10 Numeric Character Of Pain: Dull, Aching Aggravating Factor(s): Movement, Other - TOUCH Alleviating: Nothing, Ice Associated Signs And Symptoms: Positive: Negative Related History: Dominant Hand Right - Allergies/Home Medications Allergies/Adverse Reactions: Allergies Allergy/AdvReac Type Severity Reaction Status Date / Time Tobramycin AdvReac Intermediate Pain Verified 10/26/16 12:26 Home Medications: Home Medications NK [No Home Medications Reported] 10/26/16 [History Confirmed 10/26/16] PMH/Surg Hx/FS Hx/Imm Hx Previously Healthy: Yes - Surgical History Surgical History: Yes Surgery Procedure, Year, and Place: T&A, Adnoidectomy - Family History Known Family History: Negative: Cardiac Disease, Hypertension, Diabetes Family History: no recent family illness, no cardio-vascular disease history - Social History Occupation: Employed Full-time Lives: With Family Alcohol Use: None Alcohol Amount: none in 3 months Substance Use Type: None Substance Use Comment - Amount & Last Used: quit 12 months ago marijuana Smoking Status (MU): Light Every Day Tobacco Smoker Type: Cigarettes Amount Used/How Often: 1 PACK A WEEK Length of Time of Smoking/Using Tobacco: 5 YEARS Have You Smoked in the Last Year: Yes Household Exposure Type: Cigarettes - Immunization History Most Recent Influenza Vaccination: Not the 2016/2016 Season Most Recent Tetanus Shot: Summer 2016 Most Recent Pneumonia Vaccination: none Review of Systems Constitutional: Negative Skin: Negative Eyes: Negative ENT: Negative Respiratory: Negative Cardiovascular: Negative Gastrointestinal: Negative Genitourinary: Negative Motor: Negative Neurovascular: Negative Musculoskeletal: Arthralgia, Edema, Myalgia Neurological: Negative Psychological: Negative All Other Systems Reviewed And Are Negative: Yes Physical Exam Triage Information Reviewed: Yes Appearance: Well-Appearing, No Pain Distress, Well-Nourished Vital Signs: Initial Vital Signs Temp 97.8 F 10/26/16 12:19 Pulse 66 10/26/16 12:19 Resp 12 10/26/16 12:19 BP 101/52 10/26/16 12:19 Pulse Ox 100 10/26/16 12:19 Vital Signs Reviewed: Yes Eye Exam: Normal ENT Exam: Normal ENT: Positive: Normal ENT inspection, Hearing grossly normal Dental Exam: Normal Neck exam: Normal Neck: Positive: Supple, Nontender Respiratory Exam: Normal Respiratory: Positive: Chest non-tender, Lungs clear, Normal breath sounds, No respiratory distress Cardiovascular Exam: Normal Cardiovascular: Positive: RRR, No Murmur, Pulses Normal Abdominal Exam: Normal Musculoskeletal: Positive: Strength Intact, ROM Intact, Edema @ - LEFT FOREARM Neurological Exam: Normal Psychological Exam: Normal Skin Exam: Normal Hand/Wrist Course/Dx - Differential Dx/Diagnosis Differential Diagnosis/HQI/PQRI: Fracture, Sprain, Strain Provider Diagnoses: LEFT WRIST CONTUSION/SPRAIN Discharge - Discharge Plan Condition: Stable Disposition: HOME Patient Education Materials: Wrist Injury (ED), Wrist Sprain (ED) Forms: *Work Release Referrals: [facility] [Outside] Bindu Jesus NP [Primary Care Provider] -
== END 2016-10-26 13:55 | disposition home or self-care (01) ==
LOC: UCEAST 12:04
DX: S60.212A Contusion of left wrist, initial encounter (principal); S63.502A Unspecified sprain of left wrist, initial encounter; W20.8XXA Other cause of strike by thrown, projected or falling object, initial encounter; Y93.9 Activity, unspecified; Y92.9 Unspecified place or not applicable; Y99.9 Unspecified external cause status; Z72.0 Tobacco use; F12.21 Cannabis dependence, in remission
CPT/HCPCS: 99212; G0463

== ENCOUNTER 2017-02-22 09:28 | Emergency (ER) | payer BC ==
--- NOTE | 2017-02-22 09:54 | UC ---
Respiratory Complaint HPI - HPI Summary HPI Summary: Patient has had a month of sinus pressure and congestion it is now in her lungs , harsh productive cough, chills and sweats at night - History of Current Complaint Stated Complaint: SINUS/COUGH Time Seen by Provider: 02/22/17 09:47 Hx Obtained From: Patient Hx Last Menstrual Period: 3 wks ago ?: No Onset/Duration: Sudden Onset, Lasting Weeks Timing: Constant Severity Initially: Mild Severity Currently: Moderate Character: Cough: Productive Aggravating Factors: Exertion, Deep Breaths, Recumbent Position Alleviating Factors: Nothing Associated Signs And Symptoms: Positive: Dyspnea, Wheezing, URI, Nasal Congestion - Allergies/Home Medications Allergies/Adverse Reactions: Allergies Allergy/AdvReac Type Severity Reaction Status Date / Time Tobramycin AdvReac Intermediate Pain Verified 10/26/16 12:26 PMH/Surg Hx/FS Hx/Imm Hx Previously Healthy: Yes - Surgical History Surgical History: Yes Surgery Procedure, Year, and Place: T&A, Adnoidectomy - Family History Known Family History: Negative: Cardiac Disease, Hypertension, Diabetes Family History: no recent family illness, no cardio-vascular disease history - Social History Alcohol Use: None Alcohol Amount: none in 3 months Substance Use Type: None Substance Use Comment - Amount & Last Used: quit 12 months ago marijuana Smoking Status (MU): Light Every Day Tobacco Smoker Type: Cigarettes Amount Used/How Often: 1 PACK A WEEK Length of Time of Smoking/Using Tobacco: 5 YEARS Have You Smoked in the Last Year: Yes Household Exposure Type: Cigarettes - Immunization History Most Recent Influenza Vaccination: Not the 2016/2016 Season Most Recent Tetanus Shot: Summer 2015 Most Recent Pneumonia Vaccination: none Review of Systems Constitutional: Negative Skin: Negative Eyes: Negative ENT: Nasal Discharge, Sinus Congestion, Sinus Pain/Tenderness Respiratory: Shortness Of Breath, Cough Cardiovascular: Negative Gastrointestinal: Negative Genitourinary: Negative Motor: Negative Neurovascular: Negative Musculoskeletal: Negative Neurological: Negative Psychological: Negative Is Patient Immunocompromised?: No All Other Systems Reviewed And Are Negative: Yes Physical Exam Triage Information Reviewed: Yes Appearance: Well-Appearing, Well-Nourished, Pain Distress Vital Signs Reviewed: Yes Eye Exam: Normal ENT: Positive: Pharyngeal erythema Dental Exam: Normal Neck exam: Normal Respiratory Exam: Normal Respiratory: Positive: Chest non-tender, Lungs clear, Normal breath sounds Cardiovascular Exam: Normal Cardiovascular: Positive: RRR, No Murmur, Pulses Normal Abdominal Exam: Normal Abdomen Description: Positive: Nontender, No Organomegaly, Soft Bowel Sounds: Positive: Present Musculoskeletal Exam: Normal Musculoskeletal: Positive: Strength Intact, ROM Intact, No Edema Neurological Exam: Normal Neurological: Positive: Alert, Muscle Tone Normal Psychological Exam: Normal Skin Exam: Normal Respiratory Course/Dx - Course Course Of Treatment: hx obtained, exam performed ,meds reviewed, treated for bronchitis - Differential Dx/Diagnosis Differential Diagnosis/HQI/PQRI: Bronchitis, Sinusitis Provider Diagnoses: acute bronchitis Discharge - Discharge Plan Condition: Stable Disposition: HOME Patient Education Materials: Acute Bronchitis (ED) Referrals: Bindu Jesus NP [Primary Care Provider] - Additional Instructions: 1. take the medication as prescribed. 2. Increase fluid intake and get plenty of rest.
[2017-02-22 10:13] VITALS: BP 113/73
== END 2017-02-22 10:18 | disposition home or self-care (01) ==
LOC: UCCORT 09:28
DX: J20.9 Acute bronchitis, unspecified (principal); F17.210 Nicotine dependence, cigarettes, uncomplicated; Z88.1 Allergy status to other antibiotic agents
CPT/HCPCS: 99212; G0463

== ENCOUNTER 2017-10-17 11:24 | Emergency (ER) | payer SELFPAY ==
[2017-10-17 11:49] VITALS: BP 114/65
--- NOTE | 2017-10-17 12:39 | UC ---
Judah Carter Elizabeth, scribed for Alethea Childs DO on 10/17/17 at 1206 . Head Injury HPI - HPI Summary HPI Summary: This patient is a 27 year old F presenting to [facility] with a chief complaint of dizziness since 09:05 this morning. 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 Patient denies loss of consciousness or falling but notes a few seconds of loss of vision. The patient rates the pain 8/10 in severity. Symptoms aggravated by nothing. Symptoms alleviated by nothing. Patient reports mild nausea, fatigue, neck pain, tinnitus in her left ear, and sensitivity to light and loud sounds. Patient denies unusual mood changes and vomiting. - History Of Current Complaint Chief Complaint: UCHeadInjury Stated Complaint: HEAD INJURY Time Seen by Provider: 10/17/17 11:48 Hx Obtained From: Patient Hx Last Menstrual Period: 10/17/17 Onset/Duration: Sudden Onset, Lasting Hours - since 09:05, Still Present Severity Currently: Moderate Severity Initially: Moderate Pain Intensity: 8 Pain Scale Used: 0-10 Numeric Aggravating Factor(s): Nothing Alleviating Factor(s): Nothing Associated Signs And Symptoms: Positive: Nausea. Negative: Vomiting - Allergies/Home Medications Allergies/Adverse Reactions: Allergies Allergy/AdvReac Type Severity Reaction Status Date / Time tobramycin Allergy Eyes Verified 10/17/17 11:37 Itchy/Swollen/Red/Watery Home Medications: Home Medications NK [No Home Medications Reported] 10/17/17 [History Confirmed 10/17/17] PMH/Surg Hx/FS Hx/Imm Hx Previously Healthy: Yes - Surgical History Surgical History: Yes Surgery Procedure, Year, and Place: T&A when child. L hand 2017 - Family History Known Family History: Negative: Cardiac Disease, Hypertension, Diabetes Family History: no recent family illness, no cardio-vascular disease history - Social History Alcohol Use: Rare Alcohol Amount: none in 3 months Substance Use Type: None Substance Use Comment - Amount & Last Used: quit 12 months ago marijuana Smoking Status (MU): Light Every Day Tobacco Smoker Type: Cigarettes Amount Used/How Often: 1/2 PPD Length of Time of Smoking/Using Tobacco: 5 YEARS Have You Smoked in the Last Year: Yes Household Exposure Type: Cigarettes - Immunization History Most Recent Influenza Vaccination: Not the 2015/2016 Season Most Recent Tetanus Shot: Summer 2015 Most Recent Pneumonia Vaccination: none Review of Systems Constitutional: Fatigue ENT: Other - ringing in left ear Gastrointestinal: Negative - NEGATIVE VOMITING, Nausea Musculoskeletal: Other: - neck pain Neurological: Headache, Other - dizziness, temporary vision loss, sensitivity to light and loud sounds All Other Systems Reviewed And Are Negative: Yes Physical Exam - Summary Physical Exam Summary: Appearance: Well-Appearing, No Pain Distress, Well-Nourished Eyes: conjunctiva clear, no discharge ENT: Hearing grossly normal, no muffled/hoarse voice. Neck: Normal, Supple Respiratory/Lung Sounds: Lungs clear, Normal breath sounds, No respiratory distress, No accessory muscle use Cardiovascular: RRR, No murmur Musculoskeletal: Normal Neurological: A&Ox3, CN II-XII INTACT, SENSORY MOTOR INTACT, REFLEXES INTACT, NO CEREBELLAR SIGNS, FACIAL SYMMETRY, NORMAL GAIT Psychiatric:Normal, age appropriate behavior Skin: Normal, Warm, Dry, Normal color Triage Information Reviewed: Yes Vital Signs: Initial Vital Signs Temp 99.1 F 10/17/17 11:38 Pulse 81 10/17/17 11:38 Resp 18 10/17/17 11:38 BP 114/65 10/17/17 11:38 Pulse Ox 99 10/17/17 11:38 Vital Signs Reviewed: Yes Head Injury Course/Dx - Course Course Of Treatment: This patient is a 27 year old F reporting severe headache, nausea, temporary loss of vision, and dizziness since a heavy case fell on her forehead at 09:05. Her injury requires a brain CT to evaluate for skull fracture, which is unavailable here today. Patient will be discharged and is urged to go to the ER for a CT scan. The patient is agreeable with this plan. Medications reviewed. Allergies reviewed. The patient has been encouraged to quit smoking. - Differential Dx/Diagnosis Provider Diagnoses: concussion Discharge - Sign-Out/Discharge Documenting (check all that apply): Discharge/Admit/Transfer - Discharge Plan Condition: Stable Disposition: HOME Discharge Disposition Comment: discharge home Patient Education Materials: Concussion (ED) Forms: *Work Release Referrals: Bindu Jesus NP [Primary Care Provider] - (follow up in 3-5 days) Additional Instructions: At [facility], you were instructed to be on brain rest until all your symptoms are gone. That means no TV, no phone/cell phone, no talking with friends, no reading , no video games, no work, no working out or any other kinds of activities that may stimulate your brain. When your symptoms are gone completely, you can start with small activities like reading for 15 minutes. If you continue to be symptom free, you can gradually increase the amount of time you spend doing something or try different activities to 30 minutes then an hour and so on. If at any point your symptoms return, then we recommend that you continue to be on brain rest. - Billing Disposition and Condition Condition: STABLE Disposition: Home The documentation as recorded by the Judah patino Elizabeth accurately reflects the service I personally performed and the decisions made by me, Alethea Childs DO.
== END 2017-10-17 12:39 | disposition home or self-care (01) ==
LOC: UCEAST 11:24
DX: S06.0X0A Concussion without loss of consciousness, initial encounter (principal); W20.8XXA Other cause of strike by thrown, projected or falling object, initial encounter; Y93.89 Activity, other specified; Y92.89 Other specified places as the place of occurrence of the external cause; Y99.0 Civilian activity done for income or pay; R11.0 Nausea; Z88.1 Allergy status to other antibiotic agents; F17.210 Nicotine dependence, cigarettes, uncomplicated
CPT/HCPCS: 99212; G0463

== ENCOUNTER 2017-10-17 13:16 | Emergency (ER) | payer OTHER ==
--- NOTE | 2017-10-17 14:30 | RAD ---
HISTORY: TRAUMA, head trauma COMPARISONS: April 07, 2016 TECHNIQUE: Multiple contiguous axial CT scans were obtained of the head without intravenous contrast. FINDINGS: HEMORRHAGE/INFARCT: There is no hemorrhage or acute infarct. MASSES/SHIFT: There is no mass or shift. EXTRA-AXIAL SPACES: There are no extra-axial fluid collections. SULCI AND VENTRICLES: The sulci and ventricles are normal in size and position for the patient's stated age. CEREBRUM: There are no focal parenchymal abnormalities. BRAINSTEM: There are no focal parenchymal abnormalities. CEREBELLUM: There are no focal parenchymal abnormalities. VESSELS: The vessels are grossly normal. PARANASAL SINUSES: The paranasal sinuses are clear. ORBITS: The orbits are unremarkable. BONES AND SOFT TISSUE: No bone or soft tissue abnormalities are noted. OTHER: None IMPRESSION: NO ACUTE INTRACRANIAL PATHOLOGY.
--- NOTE | 2017-10-17 14:35 | RAD ---
HISTORY: TRAUMA, head trauma COMPARISONS: None TECHNIQUE: Multiple contiguous axial CT scans were obtained of the cervical spine without intravenous contrast, with coronal and sagittal multiplanar reformations. FINDINGS: BRAIN: The visualized brain is unremarkable CENTRAL CANAL: Evaluation of the central canal is limited on CT technique; however, there is no obvious canalicular mass or epidural hemorrhage. ALIGNMENT: There is straightening of the cervical lordosis. VERTEBRAL BODIES: The odontoid process is intact. The atlantoaxial intervals are symmetric. The vertebral bodies are normal in attenuation, without fracture. JOINTS: There is no subluxation or dislocation. MUSCULATURE: Normal INTERVERTEBRAL DISCS: The intervertebral discs are relatively preserved in height. AXIAL IMAGES: C2-C3: There is no osseous neural foraminal narrowing or central canal stenosis. C3-C4: There is no osseous neural foraminal narrowing or central canal stenosis. C4-C5: There is no osseous neural foraminal narrowing or central canal stenosis. C5-C6: There is no osseous neural foraminal narrowing or central canal stenosis. C6-C7: There is no osseous neural foraminal narrowing or central canal stenosis. C7-T1: There is no osseous neural foraminal narrowing or central canal stenosis. SOFT TISSUES: The visualized soft tissues of the neck are unremarkable. The prevertebral fat stripe is preserved. OTHER: None. IMPRESSION: NO ACUTE OSSEOUS INJURY TO THE CERVICAL SPINE.
[2017-10-17] MEDS ORDERED: Ondansetron ODT TAB* 4 MG PO ONE (15:36)
[2017-10-17] MEDS ORDERED: Ibuprofen TAB* 600 MG PO ONE (15:36)
[2017-10-17 15:58] VITALS: BP 118/73
--- NOTE | 2017-10-17 22:51 | ED ---
He Carter Tariq, scribed for Edward Campos MD on 10/17/17 at 1527 . Head Injury - HPI Summary HPI Summary: A 27 y/o female presents to the ED from [facility] s/p head injury. During work, a case that contained half gallons of cream, approximately 25 lbs, fell directly on her head at 0905. Pt characterizes the pain as 8-9/10 in severity. She vaguely remembers the case striking her head and was near syncopal. Right side of her neck hurts, which was not apparent initially. Additional Sx include mild nausea. Upon impact, she lost sight, which gradually came back. She has taken no medications. - History Of Current Complaint Chief Complaint: EDHeadInjury Stated Complaint: HEAD INJURY Time Seen by Provider: 10/17/17 13:19 Hx Obtained From: Patient Hx Last Menstrual Period: 10/17/17 Mechanism Of Injury: Direct Blow Onset/Duration: Started Hours Ago, Still Present Severity Currently: Severe Pain Intensity: 8 Pain Scale Used: 0-10 Numeric Location: Discrete At: - Right side of neck Aggravating Factor(s): Other: - Nothing Alleviating Factor(s): Other: - Nothing Associated Signs And Symptoms: Nausea, Visual Changes - Allergies/Home Medications Allergies/Adverse Reactions: Allergies Allergy/AdvReac Type Severity Reaction Status Date / Time tobramycin Allergy Eyes Verified 10/17/17 13:34 Itchy/Swollen/Red/Watery PMH/Surg Hx/FS Hx/Imm Hx Endocrine/Hematology History: Denies: Hx Diabetes, Hx Thyroid Disease Cardiovascular History: Denies: Hx Deep Vein Thrombosis, Hx Hypertension, Hx Pacemaker/ICD Respiratory History: Reports: Hx Asthma Denies: Hx Chronic Obstructive Pulmonary Disease (COPD) GI History: Reports: Hx Ulcer - borderline ulcer in past History: Denies: Hx Renal Disease Sensory History: Denies: Hx Hearing Aid Psychiatric History: Denies: Hx Panic Disorder - Surgical History Surgery Procedure, Year, and Place: T&A when child. L hand 2016 Infectious Disease History: No Infectious Disease History: Reports: Hx of Known/Suspected MRSA - L foot 2013 Denies: Hx Clostridium Difficile, Hx Hepatitis, Hx Human Immunodeficiency Virus (HIV), Hx Shingles, Hx Tuberculosis, Hx Known/Suspected VRE, Hx Known/ Suspected VRSA, History Other Infectious Disease, Traveled Outside the [place] in Last 30 Days - Family History Known Family History: Negative: Cardiac Disease, Hypertension, Diabetes Family History: no recent family illness, no cardio-vascular disease history - Social History Alcohol Use: Rare Alcohol Amount: none in 3 months Substance Use Type: Reports: None Substance Use Comment - Amount & Last Used: quit 12 months ago marijuana Smoking Status (MU): Light Every Day Tobacco Smoker Type: Cigarettes Amount Used/How Often: 1/2 PPD Length of Time of Smoking/Using Tobacco: 5 YEARS Have You Smoked in the Last Year: Yes Review of Systems Negative: Fever Positive: Other - Temporary vision loss Positive: Nausea - mild Positive: Other - Right neck pain Positive: Syncope - Near syncopal All Other Systems Reviewed And Are Negative: Yes Physical Exam - Summary Physical Exam Summary: General: well-appearing, mild pain distress Skin: warm, color reflects adequate perfusion, dry Head: normal Eyes: EOMI, LOGAN ENT: normal Neck: supple, mild tenderness on right side of neck Respiratory: CTA, breath sounds present Cardiovascular: RRR Abdomen: soft, nontender Bowel: present Musculoskeletal: normal, strength/ROM intact Neurological: sensory/motor intact, A&O x3 Psychological: affect/mood appropriate GCS: 15 Triage Information Reviewed: Yes Vital Signs On Initial Exam: Initial Vitals Temp Pulse Resp BP Pulse Ox 98.8 F 84 18 116/72 98 10/17/17 13:29 10/17/17 13:29 10/17/17 13:29 10/17/17 13:29 10/17/17 13:29 Vital Signs Reviewed: Yes Diagnostics - Vital Signs Vital Signs Temp Pulse Resp BP Pulse Ox 10/17/17 13:29 98.8 F 84 18 116/72 98 - Laboratory Lab Statement: Any lab studies that have been ordered have been reviewed, and results considered in the medical decision making process. - CT Brain CT Interpretation: No Acute Changes CT Interpretation Completed By: Radiologist - NO ACUTE INTRACRANIAL PATHOLOGY. ED PHYSICIAN REVIEWED THIS RADIOLOGY REPORT. Spine CT Interpretation: No Acute Changes CT Interpretation Completed By: Radiologist - NO ACUTE OSSEOUS INJURY TO THE CERVICAL SPINE. ED PHYSICIAN REVIEWED THIS RADIOLOGY REPORT. Head Injury Course/Dx Course Of Treatment: DISCUSSED RESULTS WITH THE PATIENT. F/U PMD; RETURN IF WORSE. - Diagnoses Provider Diagnoses: Concussion, Cervical strain Discharge - Sign-Out/Discharge Documenting (check all that apply): Discharge/Admit/Transfer - Discharge - Discharge Plan Condition: Stable Disposition: HOME Prescriptions: Ondansetron ODT TAB* [Zofran 4 MG Odt TAB*] 4 mg PO Q6H PRN #10 tab.odt PRN Reason: Nausea Patient Education Materials: Cervical Strain (ED), Concussion (ED) Referrals: Bindu Jesus NP [Primary Care Provider] - Additional Instructions: FOLLOW UP WITH YOUR DOCTOR. RETURN TO THE EMERGENCY DEPARTMENT FOR ANY WORSENING OF YOUR CONDITION OR QUESTIONS OR CONCERNS. - Billing Disposition and Condition Condition: STABLE Disposition: Home The documentation as recorded by the He patino Tariq accurately reflects the service I personally performed and the decisions made by me, Edward Campos MD.
== END 2017-10-17 15:58 | disposition home or self-care (01) ==
LOC: ED 13:16
DX: S06.0X9A Concussion with loss of consciousness of unspecified duration, initial encounter (principal); S16.1XXA Strain of muscle, fascia and tendon at neck level, initial encounter; R55 Syncope and collapse; R11.0 Nausea; F17.210 Nicotine dependence, cigarettes, uncomplicated; W22.8XXA Striking against or struck by other objects, initial encounter; Y92.89 Other specified places as the place of occurrence of the external cause
CPT/HCPCS: 70450; 72125; 99282; A9270-GY

== ENCOUNTER → 2018-04-28 20:58 | Emergency (ER) | payer SELFPAY ==
[~2018-04-28 20:58] MED LIST: HYDROcodone/ACETAMIN 5-325 MG* 1 TAB PO ONE; Ibuprofen TAB* 400 MG PO ONE
[2018-04-28 22:57] LABS: ABS Basophils 0.1 10^3/ul (0-0.2); ABS Eosinophils 0.1 10^3/ul (0-0.6); ABS Lymphocytes 1.5 10^3/ul (1.0-4.8); ABS Monocytes 0.4 10^3/ul (0-0.8); ABS Neutrophils 4.5 10^3/ul (1.5-7.7); ABS Nucleated RBC 0 10^3/ul; Eosinophil % 0.8 %; Hematocrit 41 % (35-47); Hemoglobin 13.7 g/dl (12.0-16.0); Lymphocyte % 23.2 %; Mean Corpuscular HGB Conc 34 g/dl (31-36); Mean Corpuscular Hemoglobin 31 pg (27-31); Mean Corpuscular Volume 92 fL (80-97); Mean Platelet Volume 7.3 fL (7.4-10.4); Nucleated Red Blood Cells % 0; Platelet Count 317 10^3/ul (150-450); Red Blood Count 4.48 10^6/ul (4.00-5.40); Red Cell Distribution Width 13 % (10.5-15); White Blood Count 6.6 10^3/ul (3.5-10.8)
--- NOTE | 2018-04-28 23:03 | ED ---
Abdominal Pain/Female - HPI Summary HPI Summary: Patient complains of left lower abdominal pain, heavy menstrual bleeding, shooting pain from belly button down to her vagina starting 04/27. Patient states history of very light bleeding during periods, states this is much heavier, has used 8 pads today. States bleeding has brown clots and bright red blood in it. Denies fever, cough, sore throat, CP, SOB, N/V/D, change in urine , change in BM. Medical history is asthma. Abdominal surgical history is none. G1 by mouth with a history of spontaneous miscarriage. LMP March 25. - History of Current Complaint Chief Complaint: EDVaginalBleeding Stated Complaint: ABD PIAN, VAGIAL BLEEDING Time Seen by Provider: 04/28/18 21:15 Hx Obtained From: Patient Hx Last Menstrual Period: 10/17/17 Onset/Duration: Sudden Onset Timing: Constant Severity Initially: Moderate Severity Currently: Moderate Pain Intensity: 7 Pain Scale Used: 0-10 Numeric Location: Discrete At: LLQ, Umbilical Radiates: No Character: Sharp Aggravating Factor(s): Nothing Alleviating Factor(s): Nothing Associated Signs and Symptoms: Positive: Vaginal Bleeding. Negative: Vaginal Discharge Allergies/Adverse Reactions: Allergies Allergy/AdvReac Type Severity Reaction Status Date / Time tobramycin Allergy Eyes Verified 04/28/18 21:05 Itchy/Swollen/Red/Watery PMH/Surg Hx/FS Hx/Imm Hx Endocrine/Hematology History: Denies: Hx Anticoagulant Therapy, Hx Diabetes, Hx Thyroid Disease Cardiovascular History: Denies: Hx Cardiac Arrest, Hx Deep Vein Thrombosis, Hx Hypertension, Hx Pacemaker/ICD Respiratory History: Reports: Hx Asthma Denies: Hx Chronic Obstructive Pulmonary Disease (COPD) GI History: Reports: Hx Ulcer - borderline ulcer in past History: Denies: Hx Dialysis, Hx Renal Disease Sensory History: Denies: Hx Eye Prosthesis, Hx Hearing Aid EENT History: Denies: Hx Deafness Neurological History: Denies: Hx Developmental Delay Psychiatric History: Denies: Hx Panic Disorder - Surgical History Surgery Procedure, Year, and Place: T&A when child. L hand 2016 Infectious Disease History: Yes Infectious Disease History: Reports: Hx of Known/Suspected MRSA - L foot 2013 Denies: Hx Clostridium Difficile, Hx Hepatitis, Hx Human Immunodeficiency Virus (HIV), Hx Shingles, Hx Tuberculosis, Hx Known/Suspected VRE, Hx Known/ Suspected VRSA, History Other Infectious Disease, Traveled Outside the [place] in Last 30 Days - Family History Known Family History: Positive: None Negative: Cardiac Disease, Hypertension, Diabetes Family History: no recent family illness, no cardio-vascular disease history - Social History Alcohol Use: Rare Alcohol Amount: none in 3 months Substance Use Type: Reports: Marijuana Substance Use Comment - Amount & Last Used: quit 12 months ago marijuana Smoking Status (MU): Light Every Day Tobacco Smoker Type: Cigarettes Amount Used/How Often: 1/2 PPD Length of Time of Smoking/Using Tobacco: 5 YEARS Have You Smoked in the Last Year: Yes Review of Systems Constitutional: Negative Eyes: Negative ENT: Negative Cardiovascular: Negative Respiratory: Negative Positive: Abdominal Pain Genitourinary: Negative Musculoskeletal: Negative Skin: Negative Neurological: Negative Psychological: Normal All Other Systems Reviewed And Are Negative: Yes Physical Exam - Summary Physical Exam Summary: Left lower quadrant pain, umbilical pain with palpation of abdomen. Exam of her abdomen otherwise unremarkable. Triage Information Reviewed: Yes Vital Signs On Initial Exam: Initial Vitals Temp Pulse Resp BP Pulse Ox 98.3 F 106 16 138/81 100 04/28/18 20:59 04/28/18 20:59 04/28/18 20:59 04/28/18 20:59 04/28/18 20:59 Vital Signs Reviewed: Yes Appearance: Positive: Well-Appearing Skin: Positive: Warm Head/Face: Positive: Normal Head/Face Inspection Eyes: Positive: Normal Neck: Positive: Supple Respiratory/Lung Sounds: Positive: Clear to Auscultation Cardiovascular: Positive: Normal Abdomen Description: Positive: Other: Pelvic Exam: Positive: External Exam Normal, No Masses, Active Bleeding, Blood, Tender w/ Cervical Motion - Mild, Tender Adnexa - Left. Negative: Discharge, Lesions, Mass, Ulcers Neurological: Positive: Normal Psychiatric: Positive: Normal - Verónica Coma Scale Best Eye Response: 4 - Spontaneous Best Motor Response: 6 - Obeys Commands Best Verbal Response: 5 - Oriented Coma Scale Total: 15 Diagnostics - Vital Signs Vital Signs Temp Pulse Resp BP Pulse Ox 04/28/18 20:59 98.3 F 106 16 138/81 100 - Laboratory Result Diagrams: 04/28/18 22:45 04/28/18 22:45 Lab Statement: Any lab studies that have been ordered have been reviewed, and results considered in the medical decision making process. Abdominal Pain Fem Course/Dx - Course Course Of Treatment: Patient complains of left lower abdominal pain, heavy menstrual bleeding, shooting pain from belly button down to her vagina starting 04/27. Patient states history of very light bleeding during periods, states this is much heavier, has used 8 pads today. States bleeding has brown clots and bright red blood in it. Denies fever, cough, sore throat, CP, SOB, N/V/D, change in urine, change in BM. Medical history is asthma. Abdominal surgical history is none. G1 by mouth with a history of spontaneous miscarriage. LMP March 25. Physical exam:Left lower quadrant pain, umbilical pain with palpation of abdomen. Exam of her abdomen otherwise unremarkable. Vital signs within normal limits. Labs unremarkable, specifically hemoglobin. Transvaginal ultrasound positive for left ovarian cyst. NSAIDs for cyst pain. Follow-up with [facility] for heavier than usual menstrual bleeding. - Diagnoses Provider Diagnoses: Vaginal bleeding, Left ovarian cyst Discharge - Sign-Out/Discharge Documenting (check all that apply): Patient Departure - Discharge Plan Condition: Stable Disposition: HOME Patient Education Materials: Ovarian Cyst (ED), Dysfunctional Uterine Bleeding (ED) Referrals: Bindu Jesus NP [Primary Care Provider] - Magda Krause MD [Medical Doctor] - Additional Instructions: Take ibuprofen 600 mg 3 times a day for the next 2-3 days for ovarian cyst pain. Follow-up with [facility] for heavy menstruation bleeding. Return to the ED for any new or worsening symptoms - Billing Disposition and Condition Condition: STABLE Disposition: Home
[2018-04-28 23:10] LABS: Anion Gap 9 mmol/L (2-11); BUN/Creatinine Ratio 12.3 (8-20); Blood Urea Nitrogen 8 mg/dL (6-24); CO2 Carbon Dioxide 23 mmol/L (22-32); Calcium 9.1 mg/dL (8.6-10.3); Chloride 110 mmol/L (101-111); EGFR Non-African American 110.2 (>60); Glucose 104 mg/dL (70-100); Potassium 3.5 mmol/L (3.5-5.0); Sodium 142 mmol/L (135-145)
[2018-04-28 23:17] LABS: HCG Pregnancy < 0.60 mIU/mL
[2018-04-29 00:20] VITALS: BP 114/75
--- NOTE | 2018-04-30 07:25 | PN ---
Progress Note - Progress Note Date of Service: 04/28/18 Note: Vaginal DNA group positive Gardnerella, negative Jacqueline. Patient placed on Flagyl 500 twice a day 7 days Called patient and NOK throughout the day. No voicemail can be left. Unable to reach patient. Antibiotics sent to pharmacy on 04/30/18. Letter sent to patient on this date, 04/30/18.
== END | disposition home or self-care (01) ==
LOC: ED 20:58
DX: N83.202 Unspecified ovarian cyst, left side (principal); R10.32 Left lower quadrant pain; N93.9 Abnormal uterine and vaginal bleeding, unspecified
CPT/HCPCS: 36415; 76830; 80048; 84702; 85025; 87480; 87491; 87510; 87591; 87661; 99282; A9270-GY

== ENCOUNTER 2018-06-08 14:49 | Inpatient (IN) | payer SELFPAY ==
[2018-06-08] MEDS ORDERED: Nicotine Inhaler* 10 MG AMP INH PRN (15:53)
[2018-06-08 16:19] LABS: ABS Basophils 0.1 10^3/ul (0-0.2); ABS Eosinophils 0 10^3/ul (0-0.6); ABS Lymphocytes 1.6 10^3/ul (1.0-4.8); ABS Monocytes 0.5 10^3/ul (0-0.8); ABS Neutrophils 3.8 10^3/ul (1.5-7.7); ABS Nucleated RBC 0 10^3/ul; Eosinophil % 0.1 %; Hematocrit 43 % (35-47); Hemoglobin 14.5 g/dl (12.0-16.0); Lymphocyte % 27.5 %; Mean Corpuscular HGB Conc 34 g/dl (31-36); Mean Corpuscular Hemoglobin 31 pg (27-31); Mean Corpuscular Volume 90 fL (80-97); Nucleated Red Blood Cells % 0; Platelet Count 358 10^3/ul (150-450); Red Blood Count 4.76 10^6/ul (4.00-5.40); Red Cell Distribution Width 13 % (10.5-15)
[2018-06-08 16:33] LABS: ALT 16 U/L (7-52); AST 30 U/L (13-39); Albumin 4.9 g/dL (3.2-5.2); Alkaline Phosphatase 62 U/L (34-104); Anion Gap 12 mmol/L (2-11); BUN/Creatinine Ratio 16.7 (8-20); Blood Urea Nitrogen 13 mg/dL (6-24); CO2 Carbon Dioxide 26 mmol/L (22-32); Calcium 9.2 mg/dL (8.6-10.3); Chloride 103 mmol/L (101-111); EGFR Non-African American 89.3 (>60); Globulin 2.4 g/dL (2-4); Glucose 79 mg/dL (70-100); Potassium 3.8 mmol/L (3.5-5.0); Sodium 141 mmol/L (135-145); Total Protein 7.3 g/dL (6.4-8.9)
[2018-06-08 16:50] LABS: Acetaminophen < 15 mcg/mL; Alcohol 339 mg/dL (<10); Salicylate < 2.50 mg/dL (<30)
[2018-06-08] MEDS ORDERED: Mouth Piece, Nicotine* 1 EACH CARTRIDGE INH ONE (17:00)
--- NOTE | 2018-06-08 17:03 | ED ---
Psychiatric Complaint - HPI Summary HPI Summary: Patient is a 28-year-old female accompanied by her mother presenting to the ED with suicidal ideation. Patient reports she cut herself several times with a boxing trainer on both arms. Patient has cut herself before to the point of requiring stitches. Patient noted she cut herself because she had the "time off " work. She noted that she expressed concerns with a friend in [place], and they "actually encouraged her to do this." She currently has feelings of suicidal ideation. Denies feelings of harming others. Has gone to counseling in the past , but stopped going about a year ago. Has tried several different medications in the past for SI. - History Of Current Complaint Chief Complaint: EDMentalHealth Time Seen by Provider: 06/08/18 15:19 Hx Obtained From: Patient, Family/Industrial Relations Director Hx Last Menstrual Period: 10/17/17 Onset/Duration: Gradual Onset, Lasting Days - Risk Factor(s) Completed Suicide Risk Factors: Past Suicide Attempt - Allergies/Home Medications Allergies/Adverse Reactions: Allergies Allergy/AdvReac Type Severity Reaction Status Date / Time tobramycin Allergy Eyes Verified 06/08/18 14:58 Itchy/Swollen/Red/Watery Home Medications: Home Medications NK [No Home Medications Reported] 06/08/18 [History Confirmed 06/08/18] PMH/Surg Hx/FS Hx/Imm Hx Previously Healthy: Yes Endocrine/Hematology History: Denies: Hx Anticoagulant Therapy, Hx Diabetes, Hx Thyroid Disease Cardiovascular History: Denies: Hx Cardiac Arrest, Hx Deep Vein Thrombosis, Hx Hypertension, Hx Pacemaker/ICD Respiratory History: Reports: Hx Asthma Denies: Hx Chronic Obstructive Pulmonary Disease (COPD) GI History: Reports: Hx Ulcer - borderline ulcer in past History: Denies: Hx Dialysis, Hx Renal Disease Sensory History: Denies: Hx Eye Prosthesis, Hx Deafness, Hx Hearing Aid Opthamlomology History: Denies: Hx Eye Prosthesis Neurological History: Denies: Hx Developmental Delay Psychiatric History: Denies: Hx Panic Disorder - Surgical History Surgery Procedure, Year, and Place: T&A when child. L hand 2017 Infectious Disease History: No Infectious Disease History: Reports: Hx of Known/Suspected MRSA - L foot 2013 Denies: Hx Clostridium Difficile, Hx Hepatitis, Hx Human Immunodeficiency Virus (HIV), Hx Shingles, Hx Tuberculosis, Hx Known/Suspected VRE, Hx Known/ Suspected VRSA, History Other Infectious Disease, Traveled Outside the [place] in Last 30 Days - Family History Known Family History: Positive: None Negative: Cardiac Disease, Hypertension, Diabetes Family History: no recent family illness, no cardio-vascular disease history - Social History Alcohol Use: Weekly Alcohol Amount: "every two days at least" Substance Use Type: Reports: None Substance Use Comment - Amount & Last Used: quit smoking pot Smoking Status (MU): Former Smoker Type: Cigarettes Amount Used/How Often: 1/2 PPD Length of Time of Smoking/Using Tobacco: 5 YEARS Have You Smoked in the Last Year: Yes Review of Systems Negative: Fever, Chills, Fatigue Eyes: Negative ENT: Negative Cardiovascular: Negative Respiratory: Negative Gastrointestinal: Negative Genitourinary: Negative Musculoskeletal: Negative Positive: Other - Admits to lacerations on left and right forearms Neurological: Negative Positive: Depressed All Other Systems Reviewed And Are Negative: Yes Physical Exam Vital Signs On Initial Exam: Initial Vitals Temp Pulse Resp BP Pulse Ox 98.9 F 160 20 127/97 98 06/08/18 14:55 06/08/18 14:55 06/08/18 14:55 06/08/18 14:55 06/08/18 14:55 Appearance: Positive: Well-Nourished, Thin, Signs of Trauma Skin: Positive: Warm, Dry, Other - several superficial lacerations to the right ventral forarm, gaping 4 cm laceration to the left dorsal forearm with minimal blood loss. Head/Face: Positive: Normal Head/Face Inspection Eyes: Positive: Normal, EOMI, LOGAN ENT: Positive: Normal ENT inspection, Hearing grossly normal Neck: Positive: Supple, Nontender, No Lymphadenopathy Respiratory/Lung Sounds: Positive: Clear to Auscultation, Breath Sounds Present Cardiovascular: Positive: Normal, RRR Abdomen Description: Positive: Nontender, No Organomegaly, Soft Musculoskeletal: Positive: Normal, Strength/ROM Intact Neurological: Positive: Normal, Sensory/Motor Intact, Alert, Oriented to Person Place, Time, CN Intact II-III Psychiatric: Positive: Depressed. Negative: Affect/Mood Appropriate Procedures - Laceration/Wound Repair 1 Location: upper extremity - left dorsal forearm Description: Linear Anesthesia: Local, 1.0% Length, Depth and Shape: 4 cm linear laceration with 3 mm depth Betadine Prep?: No - Alcohol Irrigated w/ Saline (ccs): 5 Laceration/Wound Explored: clean Closure: Single Layer Suture Type: Prolene Number of Sutures: 4 - simple interrupted Layer Closure?: No Sterile Dressing Applied?: Yes Diagnostics - Vital Signs Vital Signs Temp Pulse Resp BP Pulse Ox 06/08/18 14:55 98.9 F 160 20 127/97 98 - Laboratory Lab Results: Lab Results 06/08/18 06/08/18 Range/Units 16:12 16:12 WBC 6.0 (3.5-10.8) 10^3/ul RBC 4.76 (4.00-5.40) 10^6/ul Hgb 14.5 (12.0-16.0) g/dl Hct 43 (35-47) % MCV 90 (80-97) fL MCH 31 (27-31) pg MCHC 34 (31-36) g/dl RDW 13 (10.5-15) % Plt Count 358 (150-450) 10^3/ul MPV 7.0 L (7.4-10.4) fL Neut % (Auto) 63.2 % Lymph % (Auto) 27.5 % Noble % (Auto) 8.3 % Eos % (Auto) 0.1 % Baso % (Auto) 0.9 % Absolute Neuts (auto) 3.8 (1.5-7.7) 10^3/ul Absolute Lymphs (auto) 1.6 (1.0-4.8) 10^3/ul Absolute Monos (auto) 0.5 (0-0.8) 10^3/ul Absolute Eos (auto) 0 (0-0.6) 10^3/ul Absolute Basos (auto) 0.1 (0-0.2) 10^3/ul Absolute Nucleated RBC 0 10^3/ul Nucleated RBC % 0 Sodium 141 (135-145) mmol/L Potassium 3.8 (3.5-5.0) mmol/L Chloride 103 (101-111) mmol/L Carbon Dioxide 26 (22-32) mmol/L Anion Gap 12 H (2-11) mmol/L BUN 13 (6-24) mg/dL Creatinine 0.78 (0.51-0.95) mg/dL Est GFR ( Amer) 108.0 (>60) Est GFR (Non-Af Amer) 89.3 (>60) BUN/Creatinine Ratio 16.7 (8-20) Glucose 79 (70-100) mg/dL Calcium 9.2 (8.6-10.3) mg/dL Total Bilirubin 0.70 (0.2-1.0) mg/dL AST 30 (13-39) U/L ALT 16 (7-52) U/L Alkaline Phosphatase 62 (34-104) U/L Total Protein 7.3 (6.4-8.9) g/dL Albumin 4.9 (3.2-5.2) g/dL Globulin 2.4 (2-4) g/dL Albumin/Globulin Ratio 2.0 (1-3) TSH Pending Salicylates < 2.50 (<30) mg/dL Acetaminophen < 15 mcg/mL Serum Alcohol 339 H (<10) mg/dL Result Diagrams: 06/08/18 16:12 06/08/18 16:12 Lab Statement: Any lab studies that have been ordered have been reviewed, and results considered in the medical decision making process. Course/Dx - Course Course Of Treatment: Nurse's notes reviewed. Patient with a hx of suicidal ideations presents to the ed with SI after cutting her arms with a boxing trainer. Patient to admits to feelings self-harm, but denies feelings of harming others. On clinical exam patient has several superficial lacerations to the right and left ventral forearm and a gaping laceration on the dorsal side of the left forearm approximately 4 cm length and 0.3cm in depth. Patient presents crying during exam, and laughing at times. Prominent laceration of the dorsal side of the left forearm cleaned with alcohol pads and local anesthetic, 4 cc 0.5% lidocaine was injected into the wound margins. Laceration was closed with 4 5-0 prolene sutures, and covered in sterile dressing. Patient tolerated well with minimal blood loss. Discussed avoidance of water for 24 hrs, and apply bacitracin ointment daily. Follow-up with PCP for removal of sutures in 5-6 days. Patient was referred to mental health for further evaluation of suicidal ideation. Alcohol level 339. Will await sobriety prior to MHE. She is signed out to Jaxon Whitley PA-C. - Differential Dx/Clinical Impression Provider Diagnosis: Laceration, Suicidal ideations, Alcohol abuse Discharge - Sign-Out/Discharge Documenting (check all that apply): Sign-Out Patient Signing out patient TO: Jaxon Whitley Patient Received Moderate/Deep Sedation with Procedure: No - Discharge Plan Condition: Fair Referrals: Bindu Jesus NP [Primary Care Provider] - - Billing Disposition and Condition Condition: FAIR
[2018-06-08 17:05] LABS: TSH (Thyroid Stimulating Horm) 1.02 mcIU/mL (0.34-5.60)
[2018-06-08 20:53] LABS: Urine Appearance Cloudy; Urine Bacteria Absent (Absent); Urine Bilirubin Negative (Negative); Urine Blood 1+ (Negative); Urine Color Yellow; Urine Glucose Negative (Negative); Urine Ketones 1+ (Negative); Urine Nitrite Negative (Negative); Urine Protein Negative (Negative); Urine Red Blood Cell Trace(0-2/hpf) (Absent); Urine Specific Gravity 1.011 (1.010-1.030); Urine Squamous Epithelial Cell Present (Absent); Urine Urobilinogen Negative (Negative); Urine White Blood Cell Trace(0-5/hpf) (Absent)
[2018-06-08 21:03] LABS: Barbiturates Urine Screen None Detected (None Detect); Benzodiazepine Urine Screen None Detected (None Detect); Urine Cannabinoids Screen Presumptive Positive (None Detect)
[2018-06-08 21:16] LABS: HCG Pregnancy < 0.60 mIU/mL
--- NOTE | 2018-06-09 02:05 | PN ---
Progress Note - Progress Note Date of Service: 06/09/18 Note: Patient signed out to ia by Yecenia CERON pending mental health evaluation and disposition. Patient EtOH returned at 339. Unable to perform mental health evaluation until EtOH returns to acceptable levels. Anticipated time of acceptable EtOH 4:30 AM. Patient will be signed out to Dr. Triana in stable condition, pending normalization of EtOH and mental health evaluation and disposition.
--- NOTE | 2018-06-09 03:13 | ED ---
Progress - Progress Note Progress Note: 0310 - Pt is a signout from OSMANY Nguyen. She will be an involuntary admit to [facility] with a dx of depression under Dr. Graham. Course/Dx - Course Course Of Treatment: Pt is a sign out from Jaxon Whitley. She is presently stable and will be an involuntary admit to [facility] with a dx of depression under Dr. Graham. - Diagnoses Provider Diagnoses: Depression Discharge - Sign-Out/Discharge Documenting (check all that apply): Patient Departure, Receiving Sign-Out Receiving patient FROM: Jaxon Whitley - Discharge Plan Condition: Fair Disposition: ADMITTED TO [facility] - Attestation Statements Document Initiated by Scribe: Yes Documenting Scribe: Clarissa Kelsey Provider For Whom Marshae is Documenting (Include Credential): Skylar Triana MD. Scribe Attestation: Clarissa Carter, scribed for Skylar Triana MD. on 06/09/18 at 1131. Status of Scribe Document: Ready
[2018-06-09] MEDS ORDERED: Al Hydrox/Mg Hydrox/Simet LIQ* 30 ML UDC PO PRN (04:43)
[2018-06-09] MEDS ORDERED: LORazepam PO 0-6 for WAM protocol PO SCH (05:00)
[2018-06-09] MEDS ORDERED: LORazepam IM 0-6 mg for WAM protocol IM SCH (05:00)
[2018-06-09] MEDS: Acetaminophen TAB* 325 MG PO PRN (09:21)
[2018-06-09] MEDS: Thiamine TAB* 100 MG TAB DAILY (@ T+1) PO SCH (09:22)
[2018-06-09] MEDS: Vitamin THERAPEUTIC TAB PO SCH (09:22)
[2018-06-09] MEDS: Folic Acid TAB* 1 MG DAILY PO SCH (09:22)
--- NOTE | 2018-06-09 11:39 | PN ---
MHU: Group Therapy Note - Service Type Service Type: 13215 Group Psychotherapy - Cognitive Behavioral Group Therapy ( CBT):Patient was attentive and participatory in CBT programming this morning, and remained in good behavioral control. Patient expressed positive insights regarding relevant treatment interventions and goals.
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
--- NOTE | 2018-06-09 14:32 | PN ---
Hospitalist Progress Note Date of Service: 06/09/18 Asked to look at EKG due to concern for ST elevations. Patient is 28 year old female admitted involuntarily for depression without any reported symptoms of chest pain. EtOH and cannabis use. EKG with NSR, evidence of early repolarization in lead v1-v3. These are not evidence of ischemic changes. No STEMI.
[2018-06-09] MEDS: PARoxetine HCL TAB* 20 MG PO SCH (15:50)
--- NOTE | 2018-06-09 16:02 | PN ---
MHU: Group Therapy Note - Service Type Service Type: 07962 Group Psychotherapy - Medication Education Group: Patient attended group and presented with flat affect that did not vary with discussion. Although responsive to direct prompts to respond to questions, patient did not engage in spontaneous conversation.
[2018-06-09] MEDS: traZODone TAB* 50 MG TAB PO SCH (19:58)
[2018-06-10 07:14] LABS: HDL Cholesterol 146.8 mg/dL
[2018-06-10] MEDS: Thiamine TAB* 100 MG TAB DAILY (@ T+1) PO SCH (09:00)
[2018-06-10] MEDS: Vitamin THERAPEUTIC TAB PO SCH (09:00)
[2018-06-10] MEDS: PARoxetine HCL TAB* 20 MG PO SCH (09:00)
[2018-06-10] MEDS: Folic Acid TAB* 1 MG DAILY PO SCH (09:01)
--- NOTE | 2018-06-10 11:39 | PN ---
Subjective - Subjective Date of Service: 06/17/18 Service Type: 66810 Hosp care 15 min low complexity Subjective: SUBJECTIVE: Nursing Report: Patient was visible on unit, no chemical restraints or PRNs. Slept overnight without incident. Attending group. CC: "I am doing better Patient was seen and evaluated today in the common room. She reported improved appetite. Patient said she plans to attend AA with her father upon discharge. She reports somewhat less anxious and depressed. She reports that she has been making friends and feels safe on the unit. The patient reports attending and participating in day groups. Per nursing no behavioral issues or overnight events reported. Patient is tolerating medications without side effects. Patient reported that her boyfriend came to visit overnight and told her that it would be best if they were not together anymore. She described it as he let me go softly and said " it is sort of sad but maybe he is right I need to work on myself and can be distracted with a boyfriend." She said she is okay with that and wants to work on herself now. Objective - Appearance Dysmorphic Features: No Hygiene: Normal Grooming: Fairly Well Kept - Behavior Psychomotor Activities: Normal Exhibits Abnormal Movement: No - Attitude and Relatedness Attitude and Relatedness: Cooperative Eye Contact: Fair - Speech Quality: Unpressured Latencies: Normal Quantity: Appropriate - Mood Patient's Decription of Mood: "Okay" - Affect Observed Affect: Non-labile Affect Consistent with: Euthymia - Thought Process Patient's Thought Process: Goal Directed Thought Content: No Passive Wish, No Suicidal Planning, No Homicidal Ideation, No Paranoid Ideation - Sensorium Experiencing Hallucinations: No, Sensorium is Clear Type of Hallucinations: Visual: No, Auditory: No, Command: No - Level of Consciousness Level of Consciousness: Alert Orientation: Yes Intact, Yes Orientated to Time, Yes Orientated to Place, Yes Orientated to Person - Impulse Control Impulse Control: Impaired - Insight and Judgement Insight and Judgement: Fair - Group Participation Particating in Group Activities: Yes - Medication Management Medication Management Adherence: Yes Assessment - Assessment Clinical Impression: Assessment: 28 year old with history of anxiety and PTSD came to the hospital after a suicide attempt and was admitted to the B[facility] at [facility]. Patient shows good treatment response. Plan - Plan Treatment Plan: Name: TOAN ROSA Birthdate: 1990 [id number] # Justification for Admission: Immediate safety # Voluntary admission. The patient requires inpatient admission at this time to assure safety, receive treatment and work toward stabilization. #Continue Paxil 20mg PO daily plan to increase to 30mg tomorrow #She plans to go to with her father after discharge. #Continue Trazodone 50mg QHS for sleep #Continue WAM alcohol withdrawal protocol # Continue thiamine and folic acid. # test negative #Q30min observation. #Abnormal EKG Medicine reviewed by medicine and determined to be normal #Patient meets the measures to benefit from Psychotherapy. #Goals before discharge include: Decrease depression, stress coping strategies to reduce anxiety. Vital Signs 06/09/18 06/09/18 06/09/18 13:22 15:00 19:58 Temperature 98.8 F Pulse Rate 69 71 Respiratory 16 16 Rate Blood Pressure 96/54 123/72 (mmHg) O2 Sat by Pulse 100 99 Oximetry 06/10/18 06/10/18 07:46 09:01 Temperature 99.0 F Pulse Rate 86 Respiratory 16 16 Rate Blood Pressure 127/75 (mmHg) O2 Sat by Pulse 100 Oximetry Sodium 141 mmol/L (135-145) 06/08/18 16:12 Potassium 3.8 mmol/L (3.5-5.0) 06/08/18 16:12 BUN 13 mg/dL (6-24) 06/08/18 16:12 Creatinine 0.78 mg/dL (0.51-0.95) 06/08/18 16:12 Hemoglobin A1c 5.0 % (4.0-5.6) 06/10/18 06:42 Calcium 9.2 mg/dL (8.6-10.3) 06/08/18 16:12 AST 30 U/L (13-39) 06/08/18 16:12 ALT 16 U/L (7-52) 06/08/18 16:12 Triglycerides 53 mg/dL 06/10/18 06:42 Cholesterol 194 mg/dL 06/10/18 06:42 LDL Cholesterol 37 mg/dL 06/10/18 06:42 Continued Medication Management: Start Medication Medications: Current Medications Acetaminophen (Tylenol Tab*) 650 mg PO Q4H PRN PRN Reason: PAIN or TEMP > 101 F Last Admin: 06/09/18 09:21 Dose: 650 mg Al Hydrox/Mg Hydrox/Simethicone (Maalox Plus*) 30 ml PO Q4H PRN PRN Reason: INDIGESTION Folic Acid (Folvite Tab*) 1 mg PO DAILY [facility] Last Admin: 06/10/18 09:01 Dose: 1 mg Lorazepam (Ativan Tab(*)) 0 - 6 mg PO .PER [facility] PARAMETERS ISMA; Protocol Lorazepam (Ativan Inj*) 0 - 6 mg IM .PER [facility] PROTOCOL ISMA; Protocol Multivitamins (Theragran Tab*) 1 tab PO DAILY [facility] Last Admin: 06/10/18 09:00 Dose: 1 tab Paroxetine HCl (Paxil Tab*) 20 mg PO DAILY [facility] Last Admin: 06/10/18 09:00 Dose: 20 mg Thiamine HCl (Vitamin B-1 Tab*) 100 mg PO DAILY [facility] Last Admin: 06/10/18 09:00 Dose: 100 mg Trazodone HCl (Desyrel Tab*) 50 mg PO BEDTIME [facility] Last Admin: 06/09/18 19:58 Dose: 50 mg - Discharge Plan Discharge Plan: Inpatient Hospitalization
--- NOTE | 2018-06-10 13:14 | PN ---
MHU: Group Therapy Note - Service Type Service Type: 88789 Group Psychotherapy - Cognitive Behavioral Group Therapy ( CBT):Patient was attentive and participatory in CBT programming this morning, and remained in good behavioral control. Patient expressed positive insights regarding relevant treatment interventions and goals.
[2018-06-10] MEDS: traZODone TAB* 50 MG TAB PO SCH (21:12)
[2018-06-11] MEDS: Vitamin THERAPEUTIC TAB PO SCH (09:00)
[2018-06-11] MEDS ORDERED: PARoxetine HCL TAB* 20 MG PO SCH (09:00)
[2018-06-11] MEDS: Folic Acid TAB* 1 MG DAILY PO SCH (09:00)
[2018-06-11] MEDS: Thiamine TAB* 100 MG TAB DAILY (@ T+1) PO SCH (09:00)
--- NOTE | 2018-06-11 11:43 | PN ---
Subjective - Subjective Date of Service: 06/11/18 Service Type: 93575 Hosp care 15 min low complexity Subjective: Nursing Report: Patient was visible on unit, no chemical restraints or PRNs. Slept overnight without incident. Attending group. CC: "I am good Patient was seen and evaluated today in the common room. She had her family visit today. She reported that she prefers having the medication at nighttime because it makes her feel drowsy. She reported improved appetite. She reports somewhat less anxious and depressed. She reports that she has been making friends and feels safe on the unit. The patient reports attending and participating in day groups. Per nursing no behavioral issues or overnight events reported. Objective - Appearance Dysmorphic Features: No Hygiene: Normal Grooming: Well Kept - Behavior Psychomotor Activities: Normal Exhibits Abnormal Movement: No - Attitude and Relatedness Attitude and Relatedness: Cooperative Eye Contact: Fair - Speech Quality: Unpressured Latencies: Normal Quantity: Appropriate - Mood Patient's Decription of Mood: "Good" - Affect Observed Affect: Non-labile Affect Consistent with: Euthymia - Thought Process Patient's Thought Process: Coherent Thought Content: No Passive Wish, No Suicidal Planning, No Homicidal Ideation, No Paranoid Ideation - Sensorium Experiencing Hallucinations: No, Sensorium is Clear Type of Hallucinations: Visual: No, Auditory: No, Command: No - Level of Consciousness Level of Consciousness: Alert Orientation: Yes Intact, Yes Orientated to Time, Yes Orientated to Place, Yes Orientated to Person - Impulse Control Impulse Control: Impaired - Insight and Judgement Insight and Judgement: Fair - Group Participation Particating in Group Activities: Yes - Medication Management Medication Management Adherence: Yes Assessment - Assessment Clinical Impression: Assessment: 28 year old with history of anxiety and PTSD came to the hospital after a suicide attempt and was admitted to the BSU at [facility]. Patient shows good treatment response. Plan - Plan Treatment Plan: Name: TOAN ROSA Birthdate: 1990 [id number] # Justification for Admission: Immediate safety # Voluntary admission. The patient requires inpatient admission at this time to assure safety, receive treatment and work toward stabilization. #Change Paxil to 30mg PO at bedtime #Continue Trazodone 50mg QHS for sleep #Discontinue [facility] alcohol withdrawal protocol as no signs are evident # Continue thiamine and folic acid. # test negative #Q30min observation. #Staff pass Family meeting for Thursday #Patient meets the measures to benefit from Psychotherapy. #Goals before discharge include: Decrease depression, stress coping strategies to reduce anxiety. Provide information about AA . Vital Signs Temp Pulse Resp BP Pulse Ox 98.0 F 78 16 111/72 100 06/11/18 07:49 06/11/18 07:49 06/11/18 11:08 06/11/18 07:49 06/11/18 07:49 06/08/18 06/08/18 06/08/18 16:12 16:12 20:37 WBC 6.0 RBC 4.76 Hgb 14.5 Hct 43 MCV 90 MCH 31 MCHC 34 RDW 13 Plt Count 358 MPV 7.0 L Neut % (Auto) 63.2 Lymph % (Auto) 27.5 [place] % (Auto) 8.3 Eos % (Auto) 0.1 Baso % (Auto) 0.9 Absolute Neuts (auto) 3.8 Absolute Lymphs (auto) 1.6 Absolute Monos (auto) 0.5 Absolute Eos (auto) 0 Absolute Basos (auto) 0.1 Absolute Nucleated RBC 0 Nucleated RBC % 0 Sodium 141 Potassium 3.8 Chloride 103 Carbon Dioxide 26 Anion Gap 12 H BUN 13 Creatinine 0.78 Est GFR ( Amer) 108.0 Est GFR (Non-Af Amer) 89.3 BUN/Creatinine Ratio 16.7 Glucose 79 Hemoglobin A1c Calcium 9.2 Total Bilirubin 0.70 AST 30 ALT 16 Alkaline Phosphatase 62 Total Protein 7.3 Albumin 4.9 Globulin 2.4 Albumin/Globulin Ratio 2.0 Triglycerides Cholesterol LDL Cholesterol HDL Cholesterol TSH 1.02 Beta HCG, Quant < 0.60 Urine Color Yellow Urine Appearance Cloudy Urine pH 5.0 Ur Specific [place] 1.011 Urine Protein Negative Urine Ketones 1+ A Urine Blood 1+ A Urine Nitrate Negative Urine Bilirubin Negative Urine Urobilinogen Negative Ur Leukocyte Esterase Negative Urine WBC (Auto) Trace(0-5/hpf) Urine RBC (Auto) Trace(0-2/hpf) Ur Squamous Epith Cells Present A Urine Bacteria Absent Urine Glucose Negative Salicylates < 2.50 Urine Opiates Screen Acetaminophen < 15 Ur Barbiturates Screen Ur Phencyclidine Scrn Ur Amphetamines Screen U Benzodiazepines Scrn Urine Cocaine Screen U Cannabinoids Screen Serum Alcohol 339 H 06/08/18 06/10/18 06/10/18 20:37 06:42 06:42 WBC RBC Hgb Hct MCV MCH MCHC RDW Plt Count MPV Neut % (Auto) Lymph % (Auto) [place] % (Auto) Eos % (Auto) Baso % (Auto) Absolute Neuts (auto) Absolute Lymphs (auto) Absolute Monos (auto) Absolute Eos (auto) Absolute Basos (auto) Absolute Nucleated RBC Nucleated RBC % Sodium Potassium Chloride Carbon Dioxide Anion Gap BUN Creatinine Est GFR ( Amer) Est GFR (Non-Af Amer) BUN/Creatinine Ratio Glucose Hemoglobin A1c 5.0 Calcium Total Bilirubin AST ALT Alkaline Phosphatase Total Protein Albumin Globulin Albumin/Globulin Ratio Triglycerides 53 Cholesterol 194 LDL Cholesterol 37 HDL Cholesterol 146.8 TSH Beta HCG, Quant Urine Color Urine Appearance Urine pH Ur Specific [place] Urine Protein Urine Ketones Urine Blood Urine Nitrate Urine Bilirubin Urine Urobilinogen Ur Leukocyte Esterase Urine WBC (Auto) Urine RBC (Auto) Ur Squamous Epith Cells Urine Bacteria Urine Glucose Salicylates Urine Opiates Screen None detected Acetaminophen Ur Barbiturates Screen None detected Ur Phencyclidine Scrn None detected Ur Amphetamines Screen None detected U Benzodiazepines Scrn None detected Urine Cocaine Screen None detected U Cannabinoids Screen Presumptive positive A Serum Alcohol Continued Medication Management: Continue Outpt Medication Medications: Current Medications Acetaminophen (Tylenol Tab*) 650 mg PO Q4H PRN PRN Reason: PAIN or TEMP > 101 F Last Admin: 06/09/18 09:21 Dose: 650 mg Al Hydrox/Mg Hydrox/Simethicone (Maalox Plus*) 30 ml PO Q4H PRN PRN Reason: INDIGESTION Folic Acid (Folvite Tab*) 1 mg PO DAILY [facility] Last Admin: 06/11/18 09:00 Dose: 1 mg Lorazepam (Ativan Tab(*)) 0 - 6 mg PO .PER [place] PARAMETERS [facility]; Protocol Lorazepam (Ativan Inj*) 0 - 6 mg IM .PER [facility] PROTOCOL [facility]; Protocol Multivitamins (Theragran Tab*) 1 tab PO DAILY [facility] Last Admin: 06/11/18 09:00 Dose: 1 tab Paroxetine HCl (Paxil Tab*) 30 mg PO DAILY [facility] Last Admin: 06/11/18 09:00 Dose: 30 mg Thiamine HCl (Vitamin B-1 Tab*) 100 mg PO DAILY [facility] Last Admin: 06/11/18 09:00 Dose: 100 mg Trazodone HCl (Desyrel Tab*) 50 mg PO BEDTIME [facility] Last Admin: 06/10/18 21:12 Dose: 50 mg - Discharge Plan Discharge Plan: Inpatient Hospitalization
[2018-06-11] MEDS: traZODone TAB* 50 MG TAB PO SCH (20:17)
[2018-06-12] MEDS: Folic Acid TAB* 1 MG DAILY PO SCH (08:47)
[2018-06-12] MEDS: Thiamine TAB* 100 MG TAB DAILY (@ T+1) PO SCH (08:47)
[2018-06-12] MEDS: Vitamin THERAPEUTIC TAB PO SCH (08:47)
[2018-06-12] MEDS ORDERED: PARoxetine HCL TAB* 20 MG PO SCH (21:00)
[2018-06-12] MEDS: traZODone TAB* 50 MG TAB PO SCH (21:15)
[2018-06-13] MEDS: Thiamine TAB* 100 MG TAB DAILY (@ T+1) PO SCH (08:26)
[2018-06-13] MEDS: Folic Acid TAB* 1 MG DAILY PO SCH (08:26)
[2018-06-13] MEDS: Vitamin THERAPEUTIC TAB PO SCH (08:26)
[2018-06-13] MEDS: Acetaminophen TAB* 325 MG PO PRN (10:32)
[2018-06-13] MEDS ORDERED: PARoxetine HCL TAB* 20 MG PO ONE (17:00)
--- NOTE | 2018-06-13 18:38 | PN ---
Subjective - Subjective Date of Service: 06/13/18 Service Type: 63784 Hosp care 15 min low complexity Subjective: Patient presented with a happy attitude without any psychiatric complaints. She mentions about everything as a problem except alcohol although she has been abusing alcohol. Later says she might attend AA. Her mood has improved and denies having thoughts of harming self. Tolerating Paxil fairly well and administration was switched to AM. Objective - Appearance Appearance: Healthy Appearing Dysmorphic Features: No Hygiene: Normal Grooming: Fairly Well Kept - Behavior Psychomotor Activities: Normal Exhibits Abnormal Movement: No - Attitude and Relatedness Attitude and Relatedness: Appropriate Eye Contact: Good - Speech Quality: Unpressured Latencies: Normal Quantity: Appropriate - Mood Patient's Decription of Mood: "Fine" - Affect Observed Affect: Non-labile Affect Consistent with: Dysphoria - Thought Process Patient's Thought Process: Coherent, Goal Directed Thought Content: No Passive Wish, No Suicidal Planning, No Homicidal Ideation, No Paranoid Ideation - Sensorium Experiencing Hallucinations: No, Sensorium is Clear Type of Hallucinations: Visual: No, Auditory: No, Command: No - Level of Consciousness Level of Consciousness: Alert Orientation: Yes Intact, Yes Orientated to Time, Yes Orientated to Place, Yes Orientated to Person - Impulse Control Impulse Control: Tenuous - Insight and Judgement Insight and Judgement: Fair - Group Participation Particating in Group Activities: Yes - Medication Management Medication Management Adherence: Yes Assessment - Assessment Merits Inpatient Hospitalization: For Immediate Safety, For Stabilization, Pending Safe DC Plan Clinical Impression: Assessment: 28 year old with history of anxiety and PTSD came to the hospital after a suicide attempt and was admitted to the BSU at [facility]. Patient shows good treatment response and denies SI, HI or psychosis. Plan - Plan Treatment Plan: Name: TOAN ROSA Birthdate: 1990 [id number] # Justification for Admission: Immediate safety # Voluntary admission. The patient requires inpatient admission at this time to assure safety, receive treatment and work toward stabilization. #Change Paxil to 30mg PO at bedtime #Continue Trazodone 50mg QHS for sleep #Discontinue [facility] alcohol withdrawal protocol as no signs are evident # Continue thiamine and folic acid. # test negative #Q30min observation. #Staff pass Family meeting for Thursday #Patient meets the measures to benefit from Psychotherapy. #Goals before discharge include: Decrease depression, stress coping strategies to reduce anxiety. Provide information about AA . Vital Signs Temp Pulse Resp BP Pulse Ox 98.0 F 78 16 111/72 100 06/11/18 07:49 06/11/18 07:49 06/11/18 11:08 06/11/18 07:49 06/11/18 07:49 06/08/18 06/08/18 06/08/18 16:12 16:12 20:37 WBC 6.0 RBC 4.76 Hgb 14.5 Hct 43 MCV 90 MCH 31 MCHC 34 RDW 13 Plt Count 358 MPV 7.0 L Neut % (Auto) 63.2 Lymph % (Auto) 27.5 [place] % (Auto) 8.3 Eos % (Auto) 0.1 Baso % (Auto) 0.9 Absolute Neuts (auto) 3.8 Absolute Lymphs (auto) 1.6 Absolute Monos (auto) 0.5 Absolute Eos (auto) 0 Absolute Basos (auto) 0.1 Absolute Nucleated RBC 0 Nucleated RBC % 0 Sodium 141 Potassium 3.8 Chloride 103 Carbon Dioxide 26 Anion Gap 12 H BUN 13 Creatinine 0.78 Est GFR ( Amer) 108.0 Est GFR (Non-Af Amer) 89.3 BUN/Creatinine Ratio 16.7 Glucose 79 Hemoglobin A1c Calcium 9.2 Total Bilirubin 0.70 AST 30 ALT 16 Alkaline Phosphatase 62 Total Protein 7.3 Albumin 4.9 Globulin 2.4 Albumin/Globulin Ratio 2.0 Triglycerides Cholesterol LDL Cholesterol HDL Cholesterol TSH 1.02 Beta HCG, Quant < 0.60 Urine Color Yellow Urine Appearance Cloudy Urine pH 5.0 Ur Specific [place] 1.011 Urine Protein Negative Urine Ketones 1+ A Urine Blood 1+ A Urine Nitrate Negative Urine Bilirubin Negative Urine Urobilinogen Negative Ur Leukocyte Esterase Negative Urine WBC (Auto) Trace(0-5/hpf) Urine RBC (Auto) Trace(0-2/hpf) Ur Squamous Epith Cells Present A Urine Bacteria Absent Urine Glucose Negative Salicylates < 2.50 Urine Opiates Screen Acetaminophen < 15 Ur Barbiturates Screen Ur Phencyclidine Scrn Ur Amphetamines Screen U Benzodiazepines Scrn Urine Cocaine Screen U Cannabinoids Screen Serum Alcohol 339 H 06/08/18 06/10/18 06/10/18 20:37 06:42 06:42 WBC RBC Hgb Hct MCV MCH MCHC RDW Plt Count MPV Neut % (Auto) Lymph % (Auto) [place] % (Auto) Eos % (Auto) Baso % (Auto) Absolute Neuts (auto) Absolute Lymphs (auto) Absolute Monos (auto) Absolute Eos (auto) Absolute Basos (auto) Absolute Nucleated RBC Nucleated RBC % Sodium Potassium Chloride Carbon Dioxide Anion Gap BUN Creatinine Est GFR ( Amer) Est GFR (Non-Af Amer) BUN/Creatinine Ratio Glucose Hemoglobin A1c 5.0 Calcium Total Bilirubin AST ALT Alkaline Phosphatase Total Protein Albumin Globulin Albumin/Globulin Ratio Triglycerides 53 Cholesterol 194 LDL Cholesterol 37 HDL Cholesterol 146.8 TSH Beta HCG, Quant Urine Color Urine Appearance Urine pH Ur Specific [place] Urine Protein Urine Ketones Urine Blood Urine Nitrate Urine Bilirubin Urine Urobilinogen Ur Leukocyte Esterase Urine WBC (Auto) Urine RBC (Auto) Ur Squamous Epith Cells Urine Bacteria Urine Glucose Salicylates Urine Opiates Screen None detected Acetaminophen Ur Barbiturates Screen None detected Ur Phencyclidine Scrn None detected Ur Amphetamines Screen None detected U Benzodiazepines Scrn None detected Urine Cocaine Screen None detected U Cannabinoids Screen Presumptive positive A Serum Alcohol Continued Medication Management: Continue Outpt Medication Medications: Current Medications Acetaminophen (Tylenol Tab*) 650 mg PO Q4H PRN PRN Reason: PAIN or TEMP > 101 F Last Admin: 06/13/18 10:32 Dose: 650 mg Al Hydrox/Mg Hydrox/Simethicone (Maalox Plus*) 30 ml PO Q4H PRN PRN Reason: INDIGESTION Folic Acid (Folvite Tab*) 1 mg PO DAILY [facility] Last Admin: 06/13/18 08:26 Dose: 1 mg Multivitamins (Theragran Tab*) 1 tab PO DAILY [facility] Last Admin: 06/13/18 08:26 Dose: 1 tab Paroxetine HCl (Paxil Tab*) 30 mg PO DAILY [facility] Thiamine HCl (Vitamin B-1 Tab*) 100 mg PO DAILY [facility] Last Admin: 06/13/18 08:26 Dose: 100 mg Trazodone HCl (Desyrel Tab*) 50 mg PO BEDTIME [facility] Last Admin: 06/12/18 21:15 Dose: 50 mg - Discharge Plan Discharge Plan: Drug/Alcohol Rehab
[2018-06-13] MEDS: traZODone TAB* 50 MG TAB PO SCH (20:58)
[2018-06-14] MEDS: PARoxetine HCL TAB* 20 MG PO SCH (09:20)
[2018-06-14] MEDS: Folic Acid TAB* 1 MG DAILY PO SCH (09:20)
[2018-06-14] MEDS: Vitamin THERAPEUTIC TAB PO SCH (09:20)
[2018-06-14] MEDS: Thiamine TAB* 100 MG TAB DAILY (@ T+1) PO SCH (09:20)
--- NOTE | 2018-06-14 10:38 | PN ---
Subjective - Subjective Date of Service: 06/14/18 Service Type: 82626 Hosp care 15 min low complexity Subjective: Nursing Report: Patient was visible on unit, no chemical restraints or PRNs. Slept overnight without incident. Attending group. CC: "I am getting a lot from being here Patient was seen and evaluated today in the common room. She said she enjoyed the groups and meeting with the AA people over the weekend. She has the number to someone that she plans to pick her up for meetings. She reported taking the paxil might be better in the morning because she had nightmares when taking it at night. She reported getting along with peers. She reported improved appetite. She reports that her anxiety is not overwhelming as it once was and she described it as the song in a horror movie is not playing the background anymore. The patient reports attending and participating in day groups. Per nursing no behavioral issues or overnight events reported. She reported no suicidal ideation intent or plan. Her dad came to visit over the weekend and the visit went well. Objective - Appearance Dysmorphic Features: No Hygiene: Normal Grooming: Well Kept - Behavior Psychomotor Activities: Normal Exhibits Abnormal Movement: No - Attitude and Relatedness Attitude and Relatedness: Cooperative Eye Contact: Good - Speech Quality: Unpressured Latencies: Normal Quantity: Appropriate - Mood Patient's Decription of Mood: "Good" - Affect Observed Affect: Labile Affect Consistent with: Euthymia - Thought Process Patient's Thought Process: Goal Directed Thought Content: No Passive Wish, No Suicidal Planning, No Homicidal Ideation, No Paranoid Ideation - Sensorium Experiencing Hallucinations: No, Sensorium is Clear Type of Hallucinations: Visual: No, Auditory: No, Command: No - Level of Consciousness Level of Consciousness: Alert Orientation: Yes Intact, Yes Orientated to Time, Yes Orientated to Place, Yes Orientated to Person - Impulse Control Impulse Control: Intact - Insight and Judgement Insight and Judgement: Fair - Group Participation Particating in Group Activities: Yes - Medication Management Medication Management Adherence: Yes Assessment - Assessment Merits Inpatient Hospitalization: For Immediate Safety Clinical Impression: Assessment: 28 year old with history of anxiety and PTSD came to the hospital after a suicide attempt and was admitted to the BSU at [facility]. She has shown good response to treatment. Plan - Plan Treatment Plan: Name: TOAN ROSA Birthdate: 1990 [id number] # Justification for Admission: Immediate safety # Voluntary admission. The patient requires inpatient admission at this time to assure safety, receive treatment and work toward stabilization. #Continue Paxil to 30mg PO daily #Continue Trazodone 50mg QHS for sleep # Continue thiamine and folic acid. # test negative #Q30min observation. #Staff pass #Family meeting with tentative discharge on Thursday #Patient meets the measures to benefit from Psychotherapy. #Goals before discharge include: Decrease depression, stress coping strategies to reduce anxiety. [facility] group met with her over the weekend and she received resources for attending as well as transportation arrangements. Sodium 141 mmol/L (135-145) 06/08/18 16:12 Potassium 3.8 mmol/L (3.5-5.0) 06/08/18 16:12 BUN 13 mg/dL (6-24) 06/08/18 16:12 Creatinine 0.78 mg/dL (0.51-0.95) 06/08/18 16:12 Hemoglobin A1c 5.0 % (4.0-5.6) 06/10/18 06:42 Calcium 9.2 mg/dL (8.6-10.3) 06/08/18 16:12 AST 30 U/L (13-39) 06/08/18 16:12 ALT 16 U/L (7-52) 06/08/18 16:12 Triglycerides 53 mg/dL 06/10/18 06:42 Cholesterol 194 mg/dL 06/10/18 06:42 LDL Cholesterol 37 mg/dL 06/10/18 06:42 Vital Signs Temp Pulse Resp BP Pulse Ox 97.8 F 86 16 111/68 98 06/14/18 07:34 06/14/18 07:34 06/14/18 07:34 06/14/18 07:34 06/14/18 07:34 Continued Medication Management: Start Medication Medications: Current Medications Acetaminophen (Tylenol Tab*) 650 mg PO Q4H PRN PRN Reason: PAIN or TEMP > 101 F Last Admin: 06/13/18 10:32 Dose: 650 mg Al Hydrox/Mg Hydrox/Simethicone (Maalox Plus*) 30 ml PO Q4H PRN PRN Reason: INDIGESTION Folic Acid (Folvite Tab*) 1 mg PO DAILY [facility] Last Admin: 06/14/18 09:20 Dose: 1 mg Multivitamins (Theragran Tab*) 1 tab PO DAILY [facility] Last Admin: 06/14/18 09:20 Dose: 1 tab Paroxetine HCl (Paxil Tab*) 30 mg PO DAILY [facility] Last Admin: 06/14/18 09:20 Dose: 30 mg Thiamine HCl (Vitamin B-1 Tab*) 100 mg PO DAILY [facility] Last Admin: 06/14/18 09:20 Dose: 100 mg Trazodone HCl (Desyrel Tab*) 50 mg PO BEDTIME [facility] Last Admin: 06/13/18 20:58 Dose: 50 mg - Discharge Plan Discharge Plan: Inpatient Hospitalization
--- NOTE | 2018-06-14 11:51 | PN ---
MHU: Group Therapy Note - Service Type Service Type: 60500 Group Psychotherapy - Cognitive Behavioral Group Therapy ( CBT):Patient was attentive and participatory in CBT programming this morning, and remained in good behavioral control. Patient expressed positive insights regarding relevant treatment interventions and goals.
[2018-06-14] MEDS: Acetaminophen TAB* 325 MG PO PRN (15:11)
[2018-06-14] MEDS: traZODone TAB* 50 MG TAB PO SCH (20:44)
[2018-06-15] MEDS: PARoxetine HCL TAB* 20 MG PO SCH (09:03)
[2018-06-15] MEDS: Thiamine TAB* 100 MG TAB DAILY (@ T+1) PO SCH (09:04)
[2018-06-15] MEDS: Vitamin THERAPEUTIC TAB PO SCH (09:04)
[2018-06-15] MEDS: Folic Acid TAB* 1 MG DAILY PO SCH (09:04)
--- NOTE | 2018-06-15 10:18 | PN ---
Subjective - Subjective Date of Service: 06/15/18 Service Type: 45028 Hosp care 15 min low complexity Subjective: Nursing Report: Patient was visible on unit, no chemical restraints or PRNs. Slept overnight without incident. Attending group. CC: "I am better Patient was seen and evaluated today in the common room. She was up eating breakfast. She reported sleeping overnight. She visited with her father overnight. She plans to take a week off before returning to work and plans to focus on herself. She reported getting along with peers. She reported improved appetite. She denied overwhelming anxiety. The patient reports attending and participating in day groups. Per nursing no behavioral issues or overnight events reported. She reports getting a lot out of being here and the groups.She denied suicidal ideation, intent or plan. She denied side effects to medication. She received a package from a long time friend and was happy to know how much she means to others. Objective - Appearance Dysmorphic Features: No Hygiene: Normal Grooming: Fairly Well Kept - Behavior Psychomotor Activities: Normal Exhibits Abnormal Movement: No - Attitude and Relatedness Attitude and Relatedness: Cooperative Eye Contact: Good - Speech Quality: Unpressured Latencies: Normal Quantity: Appropriate - Mood Patient's Decription of Mood: "Okay" - Affect Observed Affect: Non-labile Affect Consistent with: Euthymia - Thought Process Patient's Thought Process: Coherent Thought Content: No Passive Wish, No Suicidal Planning, No Homicidal Ideation, No Paranoid Ideation - Sensorium Experiencing Hallucinations: No, Sensorium is Clear Type of Hallucinations: Visual: No, Auditory: No, Command: No - Level of Consciousness Level of Consciousness: Alert Orientation: Yes Intact, Yes Orientated to Time, Yes Orientated to Place, Yes Orientated to Person - Impulse Control Impulse Control: Tenuous - Insight and Judgement Insight and Judgement: Good - Group Participation Particating in Group Activities: Yes - Medication Management Medication Management Adherence: Yes Assessment - Assessment Clinical Impression: Assessment: 28 year old with history of anxiety and PTSD came to the hospital after a suicide attempt and was admitted to the BSU at [facility]. She has shown good response to treatment. Plan - Plan Treatment Plan: Name: TOAN ROSA Birthdate: 1990 [id number] # Justification for Admission: Immediate safety # Voluntary admission. The patient requires inpatient admission at this time to assure safety, receive treatment and work toward stabilization. #Continue Paxil to 30mg PO daily #Continue Trazodone 50mg QHS for sleep # Continue thiamine and folic acid. # test negative #Q30min observation. #Staff pass #Family meeting Thursday around 1030am. Plan for discharge tomorrow. Plans to follow with PCP. #Goals before discharge include: Decrease depression, stress coping strategies to reduce anxiety. Continued Medication Management: Start Medication Medications: Current Medications Acetaminophen (Tylenol Tab*) 650 mg PO Q4H PRN PRN Reason: PAIN or TEMP > 101 F Last Admin: 06/14/18 15:11 Dose: 650 mg Al Hydrox/Mg Hydrox/Simethicone (Maalox Plus*) 30 ml PO Q4H PRN PRN Reason: INDIGESTION Folic Acid (Folvite Tab*) 1 mg PO DAILY [facility] Last Admin: 06/15/18 09:04 Dose: 1 mg Multivitamins (Theragran Tab*) 1 tab PO DAILY [facility] Last Admin: 06/15/18 09:04 Dose: 1 tab Paroxetine HCl (Paxil Tab*) 30 mg PO DAILY [facility] Last Admin: 06/15/18 09:03 Dose: 30 mg Thiamine HCl (Vitamin B-1 Tab*) 100 mg PO DAILY [facility] Last Admin: 06/15/18 09:04 Dose: 100 mg Trazodone HCl (Desyrel Tab*) 50 mg PO BEDTIME [facility] Last Admin: 06/14/18 20:44 Dose: 50 mg - Discharge Plan Discharge Plan: Inpatient Hospitalization
[2018-06-15] MEDS: traZODone TAB* 50 MG TAB PO SCH (20:29)
[2018-06-15] MEDS: Acetaminophen TAB* 325 MG PO PRN (20:30)
[2018-06-16 08:17] VITALS: BP 109/63
[2018-06-16] MEDS: PARoxetine HCL TAB* 20 MG PO SCH (08:46)
[2018-06-16] MEDS: Vitamin THERAPEUTIC TAB PO SCH (08:46)
[2018-06-16] MEDS: Folic Acid TAB* 1 MG DAILY PO SCH (08:46)
[2018-06-16] MEDS: Thiamine TAB* 100 MG TAB DAILY (@ T+1) PO SCH (08:48)
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
== END 2018-06-16 11:00 | disposition home or self-care (01) | DRG 881 ==
LOC: ED 14:49 → BSU 06-09 04:39
PROVIDERS: ADMIT Psychiatry & Neurology Psychiatry; ATTEND Psychiatry & Neurology Psychiatry
PROC: HZ2ZZZZ Detoxification Services for Substance Abuse Treatment (ICD-10-PCS; principal; 2018-06-09)
PROC: 0HQEXZZ Repair Left Lower Arm Skin, External Approach (ICD-10-PCS; 2018-06-09)
DX: F32.9 Major depressive disorder, single episode, unspecified (principal); R45.851 Suicidal ideations; F41.8 Other specified anxiety disorders; F41.0 Panic disorder [episodic paroxysmal anxiety]; F43.10 Post-traumatic stress disorder, unspecified; F10.10 Alcohol abuse, uncomplicated; Y90.8 Blood alcohol level of 240 mg/100 ml or more; F12.90 Cannabis use, unspecified, uncomplicated; S61.512A Laceration without foreign body of left wrist, initial encounter; S61.511A Laceration without foreign body of right wrist, initial encounter; X78.1XXA Intentional self-harm by knife, initial encounter; Y92.9 Unspecified place or not applicable; Z81.8 Family history of other mental and behavioral disorders; Z81.1 Family history of alcohol abuse and dependence; Z87.891 Personal history of nicotine dependence
CPT/HCPCS: 36415; 80053; 80061; 80307; 80320; 80329; 81003; 81015; 83036; 84443; 84702; 85025; 87086; 90853; 93005; 99222; 99231; 99238; 99283; A9270-GY; G0480

== ENCOUNTER 2018-07-27 18:52 | Emergency (ER) | payer OTHER ==
[2018-07-27 19:41] VITALS: BP 126/74
--- NOTE | 2018-07-27 19:45 | UC ---
Neck Pain HPI - HPI Summary HPI Summary: 28 yo female presents with posterior neck pain. 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 She was working tonight. Around 1800 she turned her head and felt a pop in her posterior neck with sudden onset of pain. Her neck felt stiff and the only thing that relieved her pain was to keep her head/neck still in a neutral position straight ahead. Her boyfriend came to pick her up and brought her directly to . She took some tylenol and ibuprofen for her discomfort, but has had no relief. Her pain is worse with movement and with opening and closing her jaw. She has no hx of neck pain or injuries. No car accidents in the last 5 years. She denies recent illness, radiation of pain, headache, dizziness, numbness, tingling, or trouble swallowing. - History of Current Complaint Chief Complaint: UCBackPain Stated Complaint: NECK PAIN Time Seen by Provider: 07/27/18 19:44 Hx Obtained From: Patient Hx Last Menstrual Period: [id number] Mechanism Of Injury: No Known Trauma Onset/Duration: Sudden Onset Severity: Severe Pain Intensity: 10 - Allergies/Home Medications Allergies/Adverse Reactions: Allergies Allergy/AdvReac Type Severity Reaction Status Date / Time tobramycin Allergy Eyes Verified 07/27/18 19:42 Itchy/Swollen/Red/Watery PMH/Surg Hx/FS Hx/Imm Hx Psychological History: Anxiety, Depression Other History Of: Negative For: Anticoagulant Therapy - Surgical History Surgical History: Yes Surgery Procedure, Year, and Place: T&A when child. L hand 2017 - Family History Known Family History: Positive: None Negative: Cardiac Disease, Hypertension, Diabetes Family History: no recent family illness, no cardio-vascular disease history - Social History Occupation: Employed Full-time Lives: With Family Alcohol Use: Occasionally Alcohol Amount: "every two days at least" Substance Use Type: None Substance Use Comment - Amount & Last Used: quit smoking pot Smoking Status (MU): Current Every Day Smoker Type: Cigarettes Amount Used/How Often: 1/2 PPD Length of Time of Smoking/Using Tobacco: 5 YEARS Have You Smoked in the Last Year: Yes Household Exposure Type: Cigarettes - Immunization History Most Recent Influenza Vaccination: n/a Most Recent Tetanus Shot: Summer 2015 Most Recent Pneumonia Vaccination: none Review of Systems All Other Systems Reviewed And Are Negative: Yes Constitutional: Positive: Negative Skin: Positive: Negative Eyes: Positive: Negative ENT: Positive: Negative Respiratory: Positive: Negative Cardiovascular: Positive: Negative Gastrointestinal: Positive: Negative Neurovascular: Positive: Negative Musculoskeletal: Positive: Other: - Neck pain Neurological: Positive: Negative Psychological: Positive: Negative Physical Exam - Summary Physical Exam Summary: GENERAL: Mild pain distress. Refuses to turn head due to neck pain. SKIN: No rashes, sores, lesions, or open wounds. HEENT: Head: AT/NC. Eyes: PERRLA. EOM intact. CHEST: No accessory muscle use. Breathing comfortably and in no distress. CV: Pulses intact radial and ulnar. Cap refill <2seconds MSK: Vertebral tenderness at C2-C7. Mild TTP about upper trapezius. Movements of head left or right worsens pain in neck. Flexion of b/l shoulders worsens pain. B/L UE Strength 5/5 including food general manager strength. Negative spurlings. NEURO: Alert. Sensations intact C4-T1 b/l UEs. PSYCH: Age appropriate behavior. Triage Information Reviewed: Yes Vital Signs: Initial Vital Signs Temp 98.6 F 07/27/18 19:38 Pulse 73 07/27/18 19:38 Resp 18 07/27/18 19:38 BP 126/74 07/27/18 19:38 Pulse Ox 100 07/27/18 19:38 Vital Signs Reviewed: Yes Neck Pain Course/Dx - Course Course Of Treatment: CT: IMPRESSION: No acute CT pathology and no significant change since October 17, 2017. Upon exam pt was placed in a cervical collar due to unknown stability of her neck injury. She was given norco 5/[address] was performed and was negative. She reports feeling significantly improved s/p norco and tells me that the support of the cervical collar makes her feel much better. She wishes to continue wearing this for comfort. I suspect she has an acute muscle strain/ spasm and advised to continue taking tylenol/ibuprofen for discomfort and will rx flexeril for muscle relaxer. Apply heat to the area to relax the muscles. F/ u if symptoms do not improve. - Differential Dx/Diagnosis Provider Diagnosis: Neck pain, Muscle strain Discharge - Sign-Out/Discharge Documenting (check all that apply): Patient Departure All imaging exams completed and their final reports reviewed: Yes - Discharge Plan Condition: Stable Disposition: HOME Prescriptions: Cyclobenzaprine TAB* [Flexeril 10 MG TAB*] 10 mg PO TID PRN #21 tab PRN Reason: Pain Patient Education Materials: Cervical Strain (ED) Referrals: Bindu Jesus NP [Primary Care Provider] - 2 Days Additional Instructions: If you develop a fever, shortness of breath, chest pain, new or worsening symptoms - please call your PCP or go to the ED. 1) Rest and apply ice/heat to your neck and take aleve as directed 2) Please schedule a follow up with your primary doctor for a recheck in a few days - Billing Disposition and Condition Condition: STABLE Disposition: Home
[2018-07-27] MEDS ORDERED: HYDROcodone/ACETAMIN 5-325 MG* 1 TAB PO ONE (19:53)
== END 2018-07-27 21:10 | disposition home or self-care (01) ==
LOC: UCEAST 18:52
DX: S16.1XXA Strain of muscle, fascia and tendon at neck level, initial encounter (principal); M54.2 Cervicalgia; F17.210 Nicotine dependence, cigarettes, uncomplicated; Z88.1 Allergy status to other antibiotic agents; X58.XXXA Exposure to other specified factors, initial encounter; Y92.9 Unspecified place or not applicable
CPT/HCPCS: 72125; 99212; G0463

== ENCOUNTER 2018-08-12 13:39 | Emergency (ER) | payer OTHER ==
--- NOTE | 2018-08-12 15:56 | UC ---
UC General HPI - HPI Summary HPI Summary: Ms. To presents with vague symptoms of generalized malaise, tingly and numb paresthesias and general weakness that have been going on for a year but are getting worse. She has an appointment at [facility] but not until September 14. - History of Current Complaint Chief Complaint: UCGeneralIllness Stated Complaint: SEVERE BODY ACHES Time Seen by Provider: 08/12/18 15:33 Hx Obtained From: Patient Hx Last Menstrual Period: 08/02/18 Onset/Duration: Gradual Onset Timing: Constant Onset Severity: Mild Current Severity: Moderate Pain Intensity: 7 Associated Signs & Symptoms: Positive: Dizziness, Palpitations, Weakness - Allergy/Home Medications Allergies/Adverse Reactions: Allergies Allergy/AdvReac Type Severity Reaction Status Date / Time tobramycin Allergy Eyes Verified 08/12/18 14:08 Itchy/Swollen/Red/Watery PMH/Surg Hx/FS Hx/Imm Hx Previously Healthy: Yes Psychological History: Anxiety, Depression - She says these are under control right now. Other History Of: Negative For: Anticoagulant Therapy - Surgical History Surgical History: Yes Surgery Procedure, Year, and Place: T&A when child. L hand 2017 - Family History Known Family History: Positive: None Negative: Cardiac Disease, Hypertension, Diabetes Family History: no recent family illness, no cardio-vascular disease history - Social History Alcohol Use: None Alcohol Amount: "every two days at least" Substance Use Type: None Substance Use Comment - Amount & Last Used: quit smoking pot Smoking Status (MU): Heavy Every Day Tobacco Smoker Type: Cigarettes Amount Used/How Often: 1/2 PPD Length of Time of Smoking/Using Tobacco: 5 YEARS Have You Smoked in the Last Year: Yes Household Exposure Type: Cigarettes - Immunization History Most Recent Influenza Vaccination: n/a Most Recent Tetanus Shot: Summer 2015 Most Recent Pneumonia Vaccination: none Review of Systems All Other Systems Reviewed And Are Negative: Yes Constitutional: Positive: Fatigue Skin: Positive: Negative Eyes: Positive: Negative ENT: Positive: Negative Respiratory: Positive: Negative Cardiovascular: Positive: Palpitations Gastrointestinal: Positive: Nausea Genitourinary: Positive: Negative Motor: Positive: Weakness Neurovascular: Positive: Decreased Sensation Musculoskeletal: Positive: Arthralgia, Myalgia Neurological: Positive: Paresthesia Psychological: Positive: Negative Is Patient Immunocompromised?: No Physical Exam - Summary Physical Exam Summary: She is non-toxic in appearance with stable vitals. She is a bit labile and tearful secondary to her frustration. Triage Information Reviewed: Yes Appearance: Well-Appearing Vital Signs: Initial Vital Signs Temp 98.6 F 08/12/18 14:03 Pulse 100 08/12/18 14:03 Resp 20 08/12/18 14:03 BP 118/79 08/12/18 14:03 Pulse Ox 100 08/12/18 14:03 Vital Signs Reviewed: Yes Eyes: Positive: Conjunctiva Clear ENT Exam: Normal Neck exam: Normal Respiratory Exam: Normal Cardiovascular Exam: Normal Abdominal Exam: Normal Bowel Sounds: Positive: Present Musculoskeletal Exam: Normal Neurological Exam: Normal - slight hypereflexia and a few beats of non- sustained clonus Psychological Exam: Normal - tearful Skin Exam: Normal Course/Dx - Course Course Of Treatment: I don't think anything immediately dangerous is going on and suggested we send labs today for her to F/U with at [facility]. She is OK with that plan. - Diagnoses Provider Diagnosis: Paresthesia, Malaise and fatigue Discharge - Sign-Out/Discharge Documenting (check all that apply): Patient Departure All imaging exams completed and their final reports reviewed: No Studies - Discharge Plan Condition: Stable Disposition: HOME Patient Education Materials: Fatigue (ED) Referrals: Bindu Jesus NP [Primary Care Provider] - - Billing Disposition and Condition Condition: STABLE Disposition: Home
[2018-08-12 16:22] VITALS: BP 132/77
[2018-08-12 19:03] LABS: ABS Basophils 0 10^3/ul (0-0.2); ABS Eosinophils 0 10^3/ul (0-0.6); ABS Lymphocytes 1.8 10^3/ul (1.0-4.8); ABS Monocytes 0.5 10^3/ul (0-0.8); ABS Neutrophils 5.7 10^3/ul (1.5-7.7); ABS Nucleated RBC 0 10^3/ul; Eosinophil % 0.6 %; Hematocrit 37 % (33-41); Hemoglobin 12.3 g/dL (12.0-16.0); Lymphocyte % 22.4 %; Mean Corpuscular HGB Conc 33 g/dL (31-36); Mean Corpuscular Hemoglobin 30 pg (27-31); Mean Corpuscular Volume 90 fL (80-97); Mean Platelet Volume 7.5 fL (7.4-10.4); Nucleated Red Blood Cells % 0; Platelet Count 355 10^3/uL (150-450); Red Blood Count 4.09 10^6 /uL (3.70-4.87); Red Cell Distribution Width 13 % (10.5-15); White Blood Count 8.1 10^3/uL (3.5-10.8)
[2018-08-12 19:14] LABS: Albumin 4.7 g/dL (3.2-5.2); Anion Gap 7 mmol/L (2-11); CO2 Carbon Dioxide 28 mmol/L (22-32); Calcium 9.6 mg/dL (8.6-10.3); Chloride 103 mmol/L (101-111); Potassium 3.8 mmol/L (3.5-5.0); Sodium 138 mmol/L (135-145)
[2018-08-12 19:20] LABS: ALT 15 U/L (7-52); AST 23 U/L (13-39); Albumin/Globulin Ratio 2.1 (1-3); Alkaline Phosphatase 50 U/L (34-104); BUN/Creatinine Ratio 14.3 (8-20); Blood Urea Nitrogen 11 mg/dL (6-24); EGFR African American 109.6 (>60); EGFR Non-African American 90.6 (>60); Globulin 2.2 g/dL (2-4); Glucose 93 mg/dL (70-100); Total Protein 6.9 g/dL (6.4-8.9)
[2018-08-12 19:49] LABS: HCG Pregnancy < 0.60 mIU/mL
[2018-08-12 20:16] LABS: Erythrocyte Sed Rate 8 mm/Hr (0-19)
[2018-08-14 22:39] LABS: Anaplasma phagocytophilum Negative (Negative); B garinii/B afzelii PCR Negative (Negative); B mayonii PCR Negative (Negative); B. miyamotoi PCR, B Negative (Negative); Babesia divergens/MO-1 Negative (Negative); Babesia ducani Negative (Negative); Ehrlichia chaffeensis Negative (Negative); Ehrlichia ewingii/canis Negative (Negative); Ehrlichia muris eauclairensis Negative (Negative)
--- NOTE | 2018-08-15 08:31 | ED ---
Progress - Progress Note Progress Note: labs reviewed today: Lyme disease PCR tickborne PCR is negative. This is a very specific test and should rule out Lyme. RN to call patient in follow-up on how she is feeling. Serology and Western blot test For further testing can be done if she wants. she should follow up with her primary care provider at [place]. She can return to ERif her symptoms are getting worse. Course/Dx - Diagnoses Provider Diagnoses: Paresthesia, Malaise and fatigue Discharge - Sign-Out/Discharge Documenting (check all that apply): Post-Discharge Follow Up All imaging exams completed and their final reports reviewed: No Studies - Discharge Plan Condition: Stable Disposition: HOME Patient Education Materials: Fatigue (ED) Referrals: Bindu Jesus NP [Primary Care Provider] - - Billing Disposition and Condition Condition: STABLE Disposition: Home
== END 2018-08-12 16:23 | disposition home or self-care (01) ==
LOC: UCEAST 13:39
DX: R20.2 Paresthesia of skin (principal); R53.81 Other malaise; R53.83 Other fatigue; R00.2 Palpitations; R42 Dizziness and giddiness; Z88.1 Allergy status to other antibiotic agents; F17.210 Nicotine dependence, cigarettes, uncomplicated
CPT/HCPCS: 36415; 80053; 84443; 84702; 85025; 85652; 86703; 87476; 87798; 99211; G0463

== ENCOUNTER 2018-10-26 10:37 | Emergency (ER) | payer MEDICAID, OTHER ==
[2018-10-26 10:47] VITALS: BP 131/74
[2018-10-26] MEDS ORDERED: Acetaminophen TAB* 325 MG PO ONE (11:20)
--- NOTE | 2018-10-26 11:26 | ED ---
Throat Pain/Nasal Congestion - HPI Summary HPI Summary: Newly dx'd lupus pt presents w/ URI sx x 1 day. Started with Rt side otalgia last night at 21:30. Progressed to [address] and facial sinus pressure this morning. Denies dysphagia, fever, chills, sneezing, coughing, neck pain (out of norm from lupus pain), chest pain, nausea, vomiting, diarrhea, ab pain, new rash ( has rashes with lupus - nothing new since onset of sx). Joint aches/pains are much worse since sx started last night. Tried 400mg ibuprofen prior to arrival w /o relief. Was recently dx'd w/ lupus and is still undergoing w/u, tx plan - not taking immunosuppressive therapy at this time. - History of Current Complaint Chief Complaint: UCRespiratory Time Seen by Provider: 10/26/18 10:57 Hx Obtained From: Patient - Allergies/Home Medications Allergies/Adverse Reactions: Allergies Allergy/AdvReac Type Severity Reaction Status Date / Time tobramycin Allergy Eyes Verified 10/26/18 10:47 Itchy/Swollen/Red/Watery Home Medications: Home Medications Ibuprofen 400 mg PO ONCE PRN 10/26/18 [History Confirmed 10/26/18] Norgestimate-Ethinyl Estradiol [Ortho Tri-Cyclen Lo Tablet] 1 tab PO DAILY 10/26 [History Confirmed 10/26/18] PMH/Surg Hx/FS Hx/Imm Hx Previously Healthy: No - see SLE below Endocrine/Hematology History: Reports: Hx Systemic Lupus Erythematosus - new dx - waiting for tx Denies: Hx Anticoagulant Therapy, Hx Diabetes, Hx Thyroid Disease Cardiovascular History: Denies: Hx Cardiac Arrest, Hx Deep Vein Thrombosis, Hx Hypertension, Hx Pacemaker/ICD Respiratory History: Reports: Hx Asthma Denies: Hx Chronic Obstructive Pulmonary Disease (COPD) GI History: Reports: Hx Ulcer - borderline ulcer in past History: Denies: Hx Dialysis, Hx Renal Disease Sensory History: Reports: Hx Contacts or Glasses Denies: Hx Eye Prosthesis, Hx Deafness, Hx Hearing Aid Opthamlomology History: Reports: Hx Contacts or Glasses Denies: Hx Eye Prosthesis EENT History: Reports: Hx Tonsillitis - h/o recurrent strep tonsilitis as child - tonsilectomy & infections resolve Neurological History: Denies: Hx Developmental Delay Psychiatric History: Reports: Hx Depression, Hx Inpatient Treatment - [place] 2- 3yr ago, Hx Suicide Attempt, Hx Substance Abuse Denies: Hx Panic Disorder - Surgical History Surgery Procedure, Year, and Place: T&A when child d/t recurrent tonsilitis d/t strep. L hand 2017 Infectious Disease History: Yes Infectious Disease History: Reports: Hx of Known/Suspected MRSA - in foot Denies: Hx Clostridium Difficile, Hx Hepatitis, Hx Human Immunodeficiency Virus (HIV), Hx Shingles, Hx Tuberculosis, Hx Known/Suspected VRE, Hx Known/ Suspected VRSA, History Other Infectious Disease, Traveled Outside the [place] in Last 30 Days - Family History Known Family History: Positive: None Negative: Cardiac Disease, Hypertension, Diabetes Family History: no recent family illness, no cardio-vascular disease history - Social History Occupation: Employed Full-time - [employer] Lives: With Family - mom Alcohol Use: None Alcohol Amount: "every two days at least" Hx Substance Use: No Substance Use Type: Reports: None Substance Use Comment - Amount & Last Used: quit smoking pot Hx Tobacco Use: Yes Smoking Status (MU): Current Every Day Smoker Type: Cigarettes Amount Used/How Often: 1-2 cig/day Length of Time of Smoking/Using Tobacco: 5 YEARS Have You Smoked in the Last Year: Yes Review of Systems Positive: Fatigue. Negative: Fever, Chills Eyes: Negative Positive: Sore Throat, Ear Ache. Negative: Nasal Discharge Cardiovascular: Negative Respiratory: Negative Gastrointestinal: Other - "upset stomach" Genitourinary: Negative Negative: burning, dysuria, discharge, frequency, flank pain, pain, urgency Positive: Arthralgia - worse than usual Positive: Rash - baseline - no new Positive: Headache - sinus. Negative: Weakness, Paresthesia, Numbness, Syncope , Slurred Speech Psychological: Normal All Other Systems Reviewed And Are Negative: Yes Physical Exam Triage Information Reviewed: Yes Vital Signs On Initial Exam: Initial Vitals Temp Pulse Resp BP Pulse Ox 99.6 F 113 20 131/74 100 10/26/18 10:43 10/26/18 10:43 10/26/18 10:43 10/26/18 10:43 10/26/18 10:43 Vital Signs Reviewed: Yes Appearance: Positive: Well-Nourished, Ill-Appearing - appears mildly fatigued but overall in good spirits, pleasant, cooperative Skin: Positive: Warm, Skin Color Reflects Adequate Perfusion, Dry - no cody rash observed Head/Face: Positive: Normal Head/Face Inspection Eyes: Positive: Normal, EOMI, LOGAN, Conjunctiva Clear. Negative: Conjunctiva Inflammed, Discharge ENT: Positive: Hearing grossly normal, TM dull - Rt appears to have mild retraction - no erythema, no hyperemia, no lesions, no d/c - mild air/fluid level, Sinus tenderness, Uvula midline. Negative: Pharynx normal - mild cobblestoning - no edema, no erythema, no PND, Nasal congestion, Nasal drainage , TM bulging, Tonsillar swelling, Tonsillar exudate - tonsils not identified (s/ p T&A), Trismus, Muffled voice, Hoarse voice Neck: Positive: Supple, Nontender, No Lymphadenopathy Respiratory/Lung Sounds: Positive: Clear to Auscultation, Breath Sounds Present. Negative: Rales, Rhonchi, Stridor, Wheezes, Unable to speak in full sentences, Fatigue Cardiovascular: Positive: Normal, RRR, S1, S2. Negative: Murmur, Rub Abdomen Description: Positive: No Organomegaly, Soft, Other: - mild tenderness w /o acute pain, rebounding near umbilicus. Negative: Distended, Guarding Bowel Sounds: Positive: Present Pelvic Exam: Positive: Other - deferred Musculoskeletal: Positive: Strength/ROM Intact, Other - knee joints TTP - no edema, no erythema Neurological: Positive: Normal, Sensory/Motor Intact, Alert, Oriented to Person Place, Time, CN Intact II-III, Other - (-) Leila, (-) Kalpesh Psychiatric: Positive: Normal - Verónica Coma Scale Best Eye Response: 4 - Spontaneous Best Motor Response: 6 - Obeys Commands Best Verbal Response: 5 - Oriented Coma Scale Total: 15 Diagnostics - Vital Signs Vital Signs Temp Pulse Resp BP Pulse Ox 10/26/18 10:43 99.6 F 113 20 131/74 100 - Laboratory Lab Statement: Any lab studies that have been ordered have been reviewed, and results considered in the medical decision making process. EENT Course/Dx - Course Course Of Treatment: Strep test: neg. Given h/o SLE, will check for mono. Labs drawn today - will receive call w/ results. Offered decongestant tx therapy in meantime and close f/u w/ PCP. Although she does not appear to have bacterial infection at this time, will send anbx in the event she develops a fever in which case she may start anbx and f/u w/ PCP. Discussed plan and she agrees. Can increase ibuprofen to 600-800mg per dose alternating with ES acetaminophen for pain control however if sx do not improve may benefit from prednisone - will f/u w/ PCP. If danger s/sx present, go to ED. Pt agrees w/ plan. - Diagnoses Provider Diagnoses: URI (upper respiratory infection) Discharge - Sign-Out/Discharge Documenting (check all that apply): Patient Departure All imaging exams completed and their final reports reviewed: No - Discharge Plan Condition: Stable Disposition: HOME Prescriptions: Azithromycin TAB* [Zithromax TAB (Z-MORENITA) 250 mg #6 tabs] 2 tab PO .TODAY, THEN 1 DAILY #1 morenita Patient Education Materials: Upper Respiratory Infection (ED) Referrals: Bindu Jesus [employer] PROFESSOR [Primary Care Provider] - Additional Instructions: Your Strep test was negative here today. Given your history with Lupus, we will also check for mono. Labs were drawn today and you will receive call with results once available. Start decongestant therapy in meantime - this includes Saline nasal spray with or without Afrin (use only as directed), salt water gargles, and Sudafed (this may be purchased over the counter). You do not appear to have a bacterial infection at this time, however will send an antibiotic to the pharmacy in the event you develop a fever in which case you may start the antibiotic along with other therapies. It is very important that you follow-up with your PCP. Call today to update them regarding your symptoms and treatment plan. You may also increase your ibuprofen to 600mg every 6 hours with food alternating with Extra Strength acetaminophen for pain control. If pain worsens despite efforts, contact PCP. If you develop acute fever, joint swelling, throat swelling, neck stiffness, or worsening of symptoms, go to ED. - Billing Disposition and Condition Condition: STABLE Disposition: Home
[2018-10-26 16:27] LABS: ABS Basophils 0.1 10^3/ul (0-0.2); ABS Eosinophils 0.3 10^3/ul (0-0.6); ABS Lymphocytes 1.6 10^3/ul (1.0-4.8); ABS Monocytes 0.5 10^3/ul (0-0.8); ABS Neutrophils 3.2 10^3/ul (1.5-7.7); Eosinophil % 5.5 %; Hematocrit 39 % (35-47); Hemoglobin 13.2 g/dL (12.0-16.0); Mean Corpuscular HGB Conc 34 g/dL (31-36); Mean Corpuscular Hemoglobin 31 pg (27-31); Mean Corpuscular Volume 91 fL (80-97); Mean Platelet Volume 8.7 fL (7.4-10.4); Platelet Count 310 10^3/uL (150-450); Red Cell Distribution Width 13 % (10-15); White Blood Count 5.8 10^3/uL (3.5-10.8)
--- NOTE | 2018-10-27 20:18 | UC ---
- Progress Note Progress Note: Chart marked for final x-ray report review in error. No x-ray performed. Course/Dx - Diagnoses Provider Diagnoses: URI (upper respiratory infection) Discharge - Sign-Out/Discharge Documenting (check all that apply): Post-Discharge Follow Up All imaging exams completed and their final reports reviewed: No Studies - Discharge Plan Condition: Stable Disposition: HOME Prescriptions: Azithromycin TAB* [Zithromax TAB (Z-MORENITA) 250 mg #6 tabs] 2 tab PO .TODAY, THEN 1 DAILY #1 morenita Patient Education Materials: Upper Respiratory Infection (ED) Forms: *Work Release Referrals: Bindu Jesus NP [Primary Care Provider] - Additional Instructions: Your Strep test was negative here today. Given your history with Lupus, we will also check for mono. Labs were drawn today and you will receive call with results once available. Start decongestant therapy in meantime - this includes Saline nasal spray with or without Afrin (use only as directed), salt water gargles, and Sudafed (this may be purchased over the counter). You do not appear to have a bacterial infection at this time, however will send an antibiotic to the pharmacy in the event you develop a fever in which case you may start the antibiotic along with other therapies. It is very important that you follow-up with your PCP. Call today to update them regarding your symptoms and treatment plan. You may also increase your ibuprofen to 600mg every 6 hours with food alternating with Extra Strength acetaminophen for pain control. If pain worsens despite efforts, contact PCP. If you develop acute fever, joint swelling, throat swelling, neck stiffness, or worsening of symptoms, go to ED. - Billing Disposition and Condition Condition: STABLE Disposition: Home
== END 2018-10-26 12:27 | disposition home or self-care (01) ==
LOC: UCEAST 10:37
DX: J06.9 Acute upper respiratory infection, unspecified (principal)
CPT/HCPCS: 36415; 85025; 86308; 87651; 99212; A9270-GY; G0463

== ENCOUNTER 2018-10-29 08:24 | Emergency (ER) | payer OTHER ==
[2018-10-29 08:50] LABS: ABS Basophils 0.1 10^3/ul (0-0.2); ABS Eosinophils 0.3 10^3/ul (0-0.6); ABS Lymphocytes 1.4 10^3/ul (1.0-4.8); ABS Monocytes 0.2 10^3/ul (0-0.8); ABS Neutrophils 3.4 10^3/ul (1.5-7.7); Eosinophil % 5.9 %; Hematocrit 41 % (35-47); Hemoglobin 13.6 g/dL (12.0-16.0); Lymphocyte % 26.7 %; Mean Corpuscular HGB Conc 34 g/dL (31-36); Mean Corpuscular Hemoglobin 30 pg (27-31); Mean Corpuscular Volume 90 fL (80-97); Mean Platelet Volume 7.6 fL (7.4-10.4); Nucleated Red Blood Cells % 0.2; Platelet Count 314 10^3/uL (150-450); Red Blood Count 4.51 10^6 /uL (3.70-4.87); Red Cell Distribution Width 13 % (10-15); White Blood Count 5.4 10^3/uL (3.5-10.8)
[2018-10-29] MEDS ORDERED: NS 0.9% 1000 ML** 1,000 ML IV ONE ×2 (08:50→09:16)
[2018-10-29] MEDS ORDERED: Ketorolac INJ* 30 MG/ML 1 ML VIAL IV PUSH ONE (08:52)
--- NOTE | 2018-10-29 08:55 | ED ---
GI/ HPI - HPI Summary HPI Summary: 28 year old female presents with abdominal pain and diarrhea for the past 4 days. She states she was just recently diagnosed with lupus. 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 She notes nausea but no vomiting. No epigastric pain. No difficulty swallowing. No chest pain or shortness of breath or cough. She states she is currently finishing up a course of azithromycin as prescribed by urgent care a couple days ago for a upper respiratory infection that is resolving. She denies any recent travel. No one else sick. No blood in her stool. No mucus in her stool. States she has diarrhea every time she eats. No urinary symptoms. She also states she is on her period so cramping may be due to such. no edema or abdominal distention. - History of Current Complaint Chief Complaint: EDAbdPain Time Seen by Provider: 10/29/18 08:31 Stated Complaint: ABD PAIN DIARRHEA PER PT Hx Last Menstrual Period: 4 weeks ago Pain Intensity: 7 - Additional Pertinent History Primary Care Physician: HERMES - Allergy/Home Medications Allergies/Adverse Reactions: Allergies Allergy/AdvReac Type Severity Reaction Status Date / Time tobramycin Allergy Eyes Verified 10/29/18 08:30 Itchy/Swollen/Red/Watery PMH/Surg Hx/FS Hx/Imm Hx Endocrine/Hematology History: Reports: Hx Systemic Lupus Erythematosus - new dx - waiting for tx Denies: Hx Anticoagulant Therapy, Hx Diabetes, Hx Thyroid Disease Cardiovascular History: Denies: Hx Cardiac Arrest, Hx Deep Vein Thrombosis, Hx Hypertension, Hx Pacemaker/ICD Respiratory History: Reports: Hx Asthma Denies: Hx Chronic Obstructive Pulmonary Disease (COPD) GI History: Reports: Hx Ulcer - borderline ulcer in past History: Denies: Hx Dialysis, Hx Renal Disease Sensory History: Reports: Hx Contacts or Glasses Denies: Hx Eye Prosthesis, Hx Deafness, Hx Hearing Aid Opthamlomology History: Reports: Hx Contacts or Glasses Denies: Hx Eye Prosthesis Neurological History: Denies: Hx Developmental Delay Psychiatric History: Reports: Hx Depression, Hx Inpatient Treatment - [place] 2- 3yr ago, Hx Suicide Attempt, Hx Substance Abuse Denies: Hx Panic Disorder - Surgical History Surgery Procedure, Year, and Place: T&A when child d/t recurrent tonsilitis d/t strep. L hand 2017 Infectious Disease History: Yes Infectious Disease History: Reports: Hx of Known/Suspected MRSA - in foot Denies: Hx Clostridium Difficile, Hx Hepatitis, Hx Human Immunodeficiency Virus (HIV), Hx Shingles, Hx Tuberculosis, Hx Known/Suspected VRE, Hx Known/ Suspected VRSA, History Other Infectious Disease, Traveled Outside the [place] in Last 30 Days - Family History Known Family History: Positive: None Negative: Cardiac Disease, Hypertension, Diabetes Family History: no recent family illness, no cardio-vascular disease history - Social History Alcohol Use: None Alcohol Amount: "every two days at least" Hx Substance Use: No Substance Use Type: Reports: None Substance Use Comment - Amount & Last Used: quit smoking pot Hx Tobacco Use: Yes Smoking Status (MU): Current Every Day Smoker Type: Cigarettes Amount Used/How Often: 1-2 cig/day Length of Time of Smoking/Using Tobacco: 5 YEARS Have You Smoked in the Last Year: Yes Review of Systems Negative: Fever Negative: Chest Pain Negative: Shortness Of Breath Positive: Abdominal Pain, Diarrhea, Nausea. Negative: Vomiting Negative: dysuria All Other Systems Reviewed And Are Negative: Yes Physical Exam Triage Information Reviewed: Yes Vital Signs On Initial Exam: Initial Vitals Temp Pulse Resp BP Pulse Ox 98.1 F 97 14 139/95 100 10/29/18 08:27 10/29/18 08:27 10/29/18 08:27 10/29/18 08:27 10/29/18 08:27 Vital Signs Reviewed: Yes Appearance: Positive: Well-Appearing Skin: Positive: Warm, Dry Head/Face: Positive: Normal Head/Face Inspection Eyes: Positive: Normal, Conjunctiva Clear ENT: Positive: Pharynx normal Respiratory/Lung Sounds: Positive: Clear to Auscultation, Breath Sounds Present Cardiovascular: Positive: Normal, RRR Abdomen Description: Positive: Soft, Other: - tenderness lower abd Bowel Sounds: Positive: Present Musculoskeletal: Positive: Normal Neurological: Positive: Normal Psychiatric: Positive: Normal Diagnostics - Vital Signs Vital Signs Temp Pulse Resp BP Pulse Ox 10/29/18 08:27 98.1 F 97 14 139/95 100 - Laboratory Lab Results: Lab Results 10/29/18 Range/Units 08:42 WBC 5.4 (3.5-10.8) 10^3/uL RBC 4.51 (3.70-4.87) 10^6 /uL Hgb 13.6 (12.0-16.0) g/dL Hct 41 (35-47) % MCV 90 (80-97) fL MCH 30 (27-31) pg MCHC 34 (31-36) g/dL RDW 13 (10-15) % Plt Count 314 (150-450) 10^3/uL MPV 7.6 (7.4-10.4) fL Neut % (Auto) 62.0 % Lymph % (Auto) 26.7 % Crockett % (Auto) 4.5 % Eos % (Auto) 5.9 % Baso % (Auto) 0.9 % Absolute Neuts (auto) 3.4 (1.5-7.7) 10^3/ul Absolute Lymphs (auto) 1.4 (1.0-4.8) 10^3/ul Absolute Monos (auto) 0.2 (0-0.8) 10^3/ul Absolute Eos (auto) 0.3 (0-0.6) 10^3/ul Absolute Basos (auto) 0.1 (0-0.2) 10^3/ul Absolute Nucleated RBC 0.0 10^3/ul Nucleated RBC % 0.2 Result Diagrams: 10/29/18 08:42 10/29/18 08:42 Lab Statement: Any lab studies that have been ordered have been reviewed, and results considered in the medical decision making process. - CT abd CT Interpretation Completed By: Radiologist Summary of CT Findings: IMPRESSION: NO ACUTE CT PATHOLOGY OF THE VISUALIZED ABDOMEN OR PELVIS. Re-Evaluation - Re-Evaluation First Eval Re-Evaluation Time: 09:44 Change: Improved Comment: feeling better GIGU Course/Dx - Course Course Of Treatment: 28 year old female presents with abdominal pain and diarrhea for the past 4 days. She states she was just recently diagnosed with lupus. 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 She notes nausea but no vomiting. No epigastric pain. No difficulty swallowing. No chest pain or shortness of breath or cough. She states she is currently finishing up a course of azithromycin as prescribed by urgent care a couple days ago. She denies any recent travel. No one else sick. No blood in her stool. No mucus in her stool. States she has diarrhea every time she eats. No urinary symptoms. She also states she is on her period so cramping may be due to such. on exam has tenderness lower abd. wbc normal. crp normal. lipase normal. protein normal. CT abd normal. discussed results with patient that not finding reason for symptoms but with recent uri likely viral syndrome related to such. gave referral for rheumatology for lupus. told to follow up with primary. patient understand and agrees with plan. - Diagnoses Differential Diagnoses - Female: Diverticulitis, Gastroenteritis (Viral), Urinary Tract Infection Provider Diagnoses: Abdominal pain, Diarrhea Discharge - Sign-Out/Discharge Documenting (check all that apply): Patient Departure Patient Received Moderate/Deep Sedation with Procedure: No - Discharge Plan Condition: Good Disposition: HOME Patient Education Materials: Acute Diarrhea (ED) Forms: *Work Release Referrals: Bindu Jesus NP [Primary Care Provider] - Santy Carter MD [Medical Doctor] - Additional Instructions: establish care with rheumatology, a referral given can use otc loperamide for diarrhea if desire Drink small amounts of fluid as tolerated follow BRAT diet: Bananas, rice, applesauce, toast Take ibuprofen or Tylenol for pain as needed every 6 hours Follow up with primary within 5 days Return to ED if develop any new or worsening symptoms - Billing Disposition and Condition Condition: GOOD Disposition: Home
[2018-10-29 09:09] LABS: ALT 9 U/L (7-52); AST 16 U/L (13-39); Albumin 4.7 g/dL (3.2-5.2); Alkaline Phosphatase 69 U/L (34-104); Amylase 45 U/L (29-103); Anion Gap 3 mmol/L (2-11); BUN/Creatinine Ratio 11.9 (8-20); Blood Urea Nitrogen 10 mg/dL (6-24); C Reactive Protein < 1.00 mg/L (<8.01); CO2 Carbon Dioxide 33 mmol/L (22-32); Calcium 9.9 mg/dL (8.6-10.3); Chloride 103 mmol/L (101-111); EGFR African American 99.2 (>60); Globulin 2.3 g/dL (2-4); Glucose 113 mg/dL (70-100); Potassium 3.6 mmol/L (3.5-5.0); Sodium 139 mmol/L (135-145)
[2018-10-29 09:15] LABS: HCG Pregnancy < 0.60 mIU/mL
[2018-10-29] MEDS ORDERED: Iohexol 300* (CONTRAST) 10 ML SDV IV ONE (10:13)
[2018-10-29 11:57] VITALS: BP 126/80
== END 2018-10-29 11:59 | disposition home or self-care (01) ==
LOC: ED 08:24
DX: R10.9 Unspecified abdominal pain (principal); R19.7 Diarrhea, unspecified; F17.210 Nicotine dependence, cigarettes, uncomplicated
CPT/HCPCS: 36415; 74177; 80053; 82150; 83605; 83690; 84702; 85025; 86140; 96361; 96374; 99283; J1885; Q9967

== ENCOUNTER 2019-04-30 08:36 | Emergency (ER) | payer BC, OTHER ==
--- OUTSIDE RECORDS SUMMARY | 2019-04-30 08:41 | XMS REPORT | Continuity of Care Document ---
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 Emergency Care Problems Active Problems Provider Date Open wound of forearm Eduar Saldaña MD Onset: 04/06/2019 Social History Type Date Description Comments Sex Unknown ETOH Use Occasionally consumes alcohol Tobacco Use Start: Unknown Patient is a current smoker, smokes every day Smoking Status Reviewed: 04/06/19 Patient is a current smoker, smokes every day Exercise Type/Frequency Exercises regularly Allergies, Adverse Reactions, Alerts Active Allergies Reaction Severity Comments Date Tobramycin burning and redness 08/28/2016 Inactive Allergies NKDA 08/08/2016 Medications Active Medications SIG Qnty Indications Ordering Provider Date Cephalexin Unknown 500mg Capsules Immunizations Description No Information Available Vital Signs Date Vital Result Comment 04/06/2019 12:06pm Height 63 inches 5'3" Weight 132.25 lb Heart Rate 66 /min BP Systolic 116 mmHg BP Diastolic 70 mmHg Respiratory Rate 15 /min Body Temperature 98.0 F Pain Level 5 BMI (Body Mass Index) 23.4 kg/m2 08/28/2016 4:31pm Height 63 inches 5'3" Weight 111.00 lb Heart Rate 96 /min BP Systolic Sitting 110 mmHg BP Diastolic Sitting 64 mmHg Respiratory Rate 14 /min Body Temperature 98.9 F BMI (Body Mass Index) 19.7 kg/m2 Results Description No Information Available Procedures Description No Information Available Medical Devices Description No Information Available Encounters Description No Information Available Assessments Date Code Description Provider 04/06/2019 [id number] Laceration without foreign body of left Eduar Saldaña MD forearm, initial encounter Plan of Treatment 04/06/2019 - ADAM [id number] Laceration without foreign body of left forearm, initial encounterFollow up:Follow up: As needed Functional Status Description No Information Available Mental Status Description No Information Available Referrals Description No Information Available
[2019-04-30 08:51] VITALS: BP 114/77
--- NOTE | 2019-04-30 08:56 | UC ---
Throat Pain/Nasal Herman HPI - HPI Summary HPI Summary: Patient presents to urgent care reporting 5 days of progressive head congestion and sinus congestion. Patient states is been getting worse for the last the last 36 hours. Patient with a cough productive of clear to yellow sputum. Patient states she's had a low-grade fever. Patient denies nausea vomiting. Patient has had sick contacts. Patient with a remote history of asthma as well as diagnosis of lupus but is not on any medications for this. Patient denies shortness of breath. Patient reports sinus congestion and ear pain. Patient took some cough and cold medication this morning but has not taken anything prior to this. Patient states she is not . Patient's medications was entered in the EMR by the triage nurse were reviewed. - History of Current Complaint Chief Complaint: UCGeneralIllness Stated Complaint: URI Time Seen by Provider: 04/30/19 08:52 Hx Obtained From: Patient Hx Last Menstrual Period: 04/18/19 Pain Intensity: 7 - Allergies/Home Medications Allergies/Adverse Reactions: Allergies Allergy/AdvReac Type Severity Reaction Status Date / Time tobramycin Allergy Eyes Verified 04/30/19 08:44 Itchy/Swollen/Red/Watery Home Medications: Home Medications D-Methorphan/PE/Acetaminophen [Cold Multi-Symptom Daytim] 1 tab PO ONCE [History Confirmed 04/30/19] PMH/Surg Hx/FS Hx/Imm Hx Previously Healthy: Yes Other History Of: Negative For: Anticoagulant Therapy - Surgical History Surgical History: Yes Surgery Procedure, Year, and Place: T&A when child. L [facility] 2017 - Family History Known Family History: Positive: None Negative: Cardiac Disease, Hypertension, Diabetes Family History: no recent family illness, no cardio-vascular disease history - Social History Occupation: Employed Full-time - [employer] Lives: With Family Alcohol Use: Weekly Alcohol Amount: "every two days at least" Substance Use Type: Marijuana - daily Substance Use Comment - Amount & Last Used: daily Smoking Status (MU): Current Every Day Smoker Type: Cigarettes, eCigarettes Amount Used/How Often: up to 1/2 PPD Length of Time of Smoking/Using Tobacco: 5 YEARS Have You Smoked in the Last Year: Yes Household Exposure Type: Cigarettes - Immunization History Most Recent Influenza Vaccination: n/a Most Recent Tetanus Shot: Summer 2015 Most Recent Pneumonia Vaccination: none Review of Systems All Other Systems Reviewed And Are Negative: Yes Constitutional: Positive: Fever - tactile, Fatigue Eyes: Positive: Negative ENT: Positive: Sore Throat, Sinus Congestion, Sinus Pain/Tenderness Respiratory: Positive: Cough Cardiovascular: Positive: Negative Gastrointestinal: Positive: Negative Genitourinary: Positive: Negative Physical Exam - Summary Physical Exam Summary: Vital Signs Reviewed: Yes A+Ox3, congested, intermittent cough Eyes: Conjunctiva Clear, LOGAN. EOM intact and full ENT: Hearing grossly normal scant fluid left TM, + turbinates inflammed and boggy, + PND, mmoist, uvula midline, no exudate, + erythema Neck: Positive: Supple Respiratory: Positive: no accessory muscle use, + intermittent cough, + scattered end exp wheeze, slight ronchi left midlung Cardiovascular: RRR nl s1, s2 no m/r CBT <2 sec abd soft + BS nt/nd no guarding, no distension Musculoskeletal Exam: ROSADO x 4 without difficulty Strength Intact, ROM Intact Neurological: Positive: Alert, + sensation throughout Psychological: Positive: Normal Response To superintendent communications Triage Information Reviewed: Yes Vital Signs: Initial Vital Signs Temp 99.4 F 04/30/19 08:45 Pulse 98 04/30/19 08:45 Resp 16 04/30/19 08:45 BP 114/77 04/30/19 08:45 Pulse Ox 99 04/30/19 08:45 Diagnostics - Radiology No standard instances Radiology Interpretation Completed By: Radiologist - Patient Name: TOAN ROSA Medical Record#: [id number] Ordering Physician: Jia Mathur MD Acct.#: [id number] : 1990 Age: 29 Sex: F Location: [facility] Exam Date: 04/30/19902 ADM Status: REG ER Order Information: CHEST PA & LAT 2 VWS Accession Number: [id number] CPT: 64069 INDICATION: Cough and fever. COMPARISON: Comparison is made with a prior study from August 14, 2016. TECHNIQUE: Dual- energy PA and lateral views of the chest were obtained. FINDINGS: The heart is within normal limits in size. Mediastinal and hilar contours appear within normal limits. The lungs are clear. No pleural effusion is seen. IMPRESSION : NO EVIDENCE FOR ACTIVE CARDIOPULMONARY DISEASE. <Electronically signed by Rio Conde MD in OV> 04/30/19936 Dictated By: Rio Conde MD Dictated Date/Time: 935 Transcribed Date/Time: 04/30/19935 Copy to: CC:Jia Mathur MD; Bindu Jesus NP Imaging - [facility] Imaging - [facility] Imaging - [facility] [id number] [place] [id number] [place] [id number] ph ) ph ([phone]) ph ([phone]) This report is only to be considered final once signed by the Provider(s) as displayed in the "<Electronically Signed by >" field (s). Absence of a signature indicates the report is in a draft status and still needs to be finalized. In the event this document was created by someone other than the signing Provider, the individual initiating the document will be listed in the "Entered by:" or "Dictated by:" santos. 1 of 1 Re-Evaluation - Re-Evaluation First Eval Re-Evaluation Time: 09:54 Change: Improved Comment: Pt improved following nebulizer - wheezing resolved, coughing improved. d/w pt at length - pt does have h/o asthma, SLE, and + tobacco use. will start with pred and albuterol. will send Rx for augmentin - will wait and start for 1-2 days if sx persist. return precautions discussed. secretion precaution. pt comfortable and in agreement with plan Throat Pain/Nasal Course/Dx - Course Course Of Treatment: Patient presents urgent care for evaluation of progressive head congestion and sore throat left ear pain and now cough. Cough productive of clear to yellow sputum. Patient took [id number] medication this morning. Patient has had sick contacts. Patient with a history of lupus for which she is not on medication and asthma. Patient does smoke cigarettes as well as marijuana daily. On exam vital signs are stable. Patient does have congestion in her left ear sinus passages and erythema of her oropharynx. Patient does have a coarse intermittent cough and expiratory wheezing and rhonchi in the left lung. We'll give a DuoNeb check for flu chest x-ray and reassess. Patient comfortable and agreement with plan. - Differential Dx/Diagnosis Provider Diagnosis: Acute bronchitis, Upper respiratory infection Discharge ED - Sign-Out/Discharge Documenting (check all that apply): Patient Departure All imaging exams completed and their final reports reviewed: Yes - Discharge Plan Condition: Stable Disposition: HOME Prescriptions: Albuterol HFA INHALER* [Ventolin HFA Inhaler*] 2 puff INH Q4H PRN #1 mdi PRN Reason: wheeze Amoxicillin/Clavulanate TAB* [Augmentin TAB 875*] 875 mg PO BID #20 tab Inhaler, Assist Devices [Aerochamber Mv] 1 each PO Q4HR #1 spacer predniSONE TAB* [Deltasone TAB*] 50 mg PO DAILY #5 tab Patient Education Materials: Acute Bronchitis (ED), Upper Respiratory Infection (ED) Referrals: Bindu Jesus NP [Primary Care Provider] - Additional Instructions: -Take prednisone exactly as prescribed until gone starting today -Use your albuterol puffer - 2 puffs every 4 hours for the next 2 days - then as needed -Stay well hydrated - avoid excess caffeine and all alcohol - eat regular, healthy meals - - humidify the air in the room where you sleep - boil water, run a hot steam shower, vaporizer, cups of water by heat register - okay to take over the counter decongestant and cough medication - If your symptoms persist over the next 36-48 hours, okay to start antibiotics as prescribed. -- These infections are spread by secretions - do NOT share eating or drinking utensils - clean items you share with other people such as cell phones, computer mouse, TV remote, computer tablets,etc.. Once you start to feel better or after you have been antibiotics for 2 days, change your toothbrush and your pillowcase. -Contact your doctor to arrange a follow-up appointment this week. Call your doctor, return here or go to the emergency department with any questions or concerns - Billing Disposition and Condition Condition: STABLE Disposition: Home
[2019-04-30] MEDS ORDERED: Albuterol/Ipratropium NEB.SOL* Albuterol 2.5 MG/Ipratropium 0.5 MG 3 ML INH ONE (09:04)
[2019-04-30 09:24] LABS: Influenza A Molecular NEGATIVE (Negative); Influenza B Molecular NEGATIVE (Negative)
== END 2019-04-30 10:03 | disposition home or self-care (01) ==
LOC: UCEAST 08:36
DX: J20.9 Acute bronchitis, unspecified (principal); J06.9 Acute upper respiratory infection, unspecified; H92.02 Otalgia, left ear; J45.909 Unspecified asthma, uncomplicated; M32.9 Systemic lupus erythematosus, unspecified; F17.210 Nicotine dependence, cigarettes, uncomplicated; Z88.8 Allergy status to other drugs, medicaments and biological substances
CPT/HCPCS: 71046; 99212; A9270-GY; G0463

== ENCOUNTER 2023-11-12 09:56 | Inpatient (IN) ==
[2023-11-12] MEDS ORDERED: Prochlorperazine 5 mg/ml 2 ml VIAL (10 mg) IV PRN (11:06)
[2023-11-12] MEDS: miSOPROStol 100 mcg TAB PO ONE (12:08)
[2023-11-12] MEDS: Buffered Lidocaine 1% SYRIN 1 ml INTRADERM ONE (12:09)
[2023-11-12 13:26] LABS: Urine Benzodiazepine Screen None Detected (None Detect); Urine Cannabinoids Screen Presumptive Positive (None Detect); Urine Opiates Screen None Detected (None Detect)
[2023-11-12 17:58] LABS: ABS Lymphocytes 1.2 10^3/uL (1.0-4.8); ABS Monocytes 0.6 10^3/uL (0.0-0.9); ABS Neutrophils 12.3 10^3/uL (1.5-7.6); ABS Nucleated RBC 0.01 10^3/ul; Eosinophil % 0.1 %; Hematocrit 35.8 % (35-45); Hemoglobin 11.7 g/dL (11.5-14.3); Lymphocyte % 8.5 %; Mean Corpuscular Hgb Conc 32.7 g/dL (31-36); Mean Corpuscular Volume 85.6 fL (80-97); Mean Platelet Volume 9.3 fL (7.5-11.2); Platelet Count 223 10^3/uL (150-450); Red Blood Count 4.18 10^6/uL (3.63-4.92); Red Cell Distribution Width 15.1 % (12-17); White Blood Count 14.1 10^3/uL (3.8-11.8)
[2023-11-12] MEDS: Lactated Ringers 1000 ml BAG 1,000 ML IV SCH (19:00)
[2023-11-12] MEDS: Oxytocin in LR 20,000 MILLI.UNIT/1,000 ML BAG IV SCH (19:56)
[2023-11-13] MEDS: OBEPIDURAL (200 ML) 200 ML EPIDURAL SCH (01:15)
[2023-11-13] MEDS: Lactated Ringers 1000 ml BAG 1,000 ML IV ONE ×2 (01:30)
[2023-11-13] MEDS: Phenylephrine 40 mcg/mL 10mL (400mcg) SYRINGE IV PUSH PRN (01:37)
[2023-11-13] MEDS ORDERED: Phenylephrine 40 mcg/mL 10mL (400mcg) SYRINGE IV PUSH PRN (01:42)
[2023-11-13] MEDS ORDERED: Sodium Citrate/Citric Acid LIQ 15 ML UDC PO PRN (01:42)
[2023-11-13] MEDS: Lactated Ringers 1000 ml BAG 1,000 ML IV SCH (01:47)
[2023-11-13] MEDS: OBEPIDURAL (200 ML) 200 ML EPIDURAL ONE (01:47)
[2023-11-13] MEDS: Insulin NPH 100 units/ml SUBCUT SCH (02:22)
[2023-11-13] MEDS: Morphine 10 MG/ML VIAL (1 ml) IV ONE (02:22)
[2023-11-13] MEDS: miSOPROStol 100 mcg TAB PO ONE (02:22)
[2023-11-13] MEDS: Morphine 10 MG/ML VIAL (1 ml) IM ONE (02:22)
[2023-11-13] MEDS: Lidocaine 1.5% EPI 1:200,000 30 ML SDV ONE (02:23)
[2023-11-13 02:41] LABS: Urine Appearance Clear; Urine Bilirubin Negative (Negative); Urine Blood Negative (Negative); Urine Color Colorless; Urine Glucose Negative (Negative); Urine Ketones Negative (Negative); Urine Nitrite Negative (Negative); Urine Protein Negative (Negative); Urine Specific Gravity 1.008 (1.002-1.030); Urine Urobilinogen Negative (Negative)
[2023-11-13] MEDS ORDERED: Ropivacaine (OR use only) 2 MG/ML 10 ML ONE (07:33)
[2023-11-13] MEDS: Lidocaine 1% VIAL 10 MG/ML 30 ML VIAL INJ PRN (12:34)
[2023-11-13] MEDS ORDERED: Glycerin ADULT 2.4 gm SUPP PR PRN (13:12)
[2023-11-13] MEDS ORDERED: Lactated Ringers 1000 ml BAG 1,000 ML IV SCH (14:00)
[2023-11-13] MEDS: Dibucaine 1% OINT 28.35 GM TUBE PR PRN (14:13)
[2023-11-13] MEDS: Witch Hazel PAD JAR TOPICAL PRN (14:13)
[2023-11-13] MEDS: Oxytocin in LR 20,000 MILLI.UNIT/1,000 ML BAG IV SCH (20:58)
[2023-11-14 07:36] LABS: ABS Eosinophils 0.1 10^3/uL (0.0-0.5); ABS Lymphocytes 1.5 10^3/uL (1.0-4.8); ABS Monocytes 0.8 10^3/uL (0.0-0.9); ABS Neutrophils 13.8 10^3/uL (1.5-7.6); ABS Nucleated RBC 0.01 10^3/ul; Eosinophil % 0.5 %; Hematocrit 30.6 % (35-45); Hemoglobin 10.4 g/dL (11.5-14.3); Lymphocyte % 9.4 %; Mean Corpuscular Hemoglobin 29.4 pg (27-33); Mean Corpuscular Hgb Conc 34.1 g/dL (31-36); Mean Corpuscular Volume 86.2 fL (80-97); Mean Platelet Volume 8.5 fL (7.5-11.2); Platelet Count 193 10^3/uL (150-450); Red Blood Count 3.55 10^6/uL (3.63-4.92); Red Cell Distribution Width 15.2 % (12-17); White Blood Count 16.2 10^3/uL (3.8-11.8)
[2023-11-15 08:27] VITALS: BP 120/67
== END 2023-11-15 13:00 | disposition home or self-care (01) | DRG 560 ==
LOC: MCHOBOUT 09:56 → MCHOB 11:12
PROVIDERS: ADMIT Obstetrics & Gynecology; ATTEND Obstetrics & Gynecology